=== PATIENT | female | born 1945 | race Caucasian/White ===

== ENCOUNTER 2017-05-17 09:33 | Inpatient (IN) | payer OTHER ==
[~2017-05-17] VITALS: Ht 160 cm; Wt 75.4 kg
[~2017-05-17 09:33] MED LIST: ASPI1TAB83 PO; CALC600T37 PO; CHOL20005 PO; CLON0.5T3 PO; LEVO88TA3 PO; METO1TAB31 PO; NIAC250T15 PO; OMEG500C2 PO; SOLI5TAB2 PO; SRQ/100 PO
[2017-05-17 10:29] LABS: BASO % 0.6 %; BASO ABS # 0.03 K/uL (0-0.2); COMPLETE YES; EOS % 2.4 %; HEMATOCRIT 37.9 % (37-47); IG% 0.2 %; LYMPH % 17.5 %; LYMPH ABS # 0.94 K/uL (1.2-3.4); MEAN CELL VOLUME 84.2 fL (80-100); MEAN CORPUSCULAR HEMOGLOBIN 29.3 pg (25-34); MEAN CORPUSCULAR HGB CONC 34.8 g/dl (32-36); MEAN PLATELET VOLUME 8.5 fL (7.4-10.4); MONO % 8.2 %; NEUT % 71.1 %; PLATELET COUNT 297 K/uL (130-400); WHITE BLOOD COUNT 5.37 K/uL (4.8-10.8)
--- NOTE | 2017-05-17 10:33 | EMERGENCY ROOM VISIT NOTE ---
History Report prepared by Leo: Tanika Kim Under the Supervision of: Dr. Matt Leavitt M.D. First contact with patient: 09:47 Chief Complaint: MENTAL HEALTH EVALUATION Stated Complaint: ANXIETY/DEPRESSION History of Present Illness The patient is a 71 year old female who presents to the Emergency Room for a mental health evaluation. Daughter at bedside states that the patient has had anxiety for the past 3 years, which worsened in February of this year. The patient had bilateral knee replacements in January. For 8 weeks after the surgery she was just sitting around and "staring at the wall." This caused her anxiety to worsen. Her psychiatrist has been increasing her Effexor but this seems to be causing her symptoms to worsen. In March the patient took a bottle of Seroquel and Klonopin in attempts to kill herself. She was treated as an inpatient at that time in [place]. Daughter states that her medications were not adjusted at that time so she had no improvement in her anxiety. The patient has lost 40 pounds since January because she is not eating. The patient does not have any physical complaints at this time. She denies fevers, chest pain, shortness of breath, urinary symptoms, and SI or HI. She has been taking her current medications as prescribed. She is currently taking trazodone to help her sleep. Daughter notes that the patient has been complaining of some blurry vision since her OD in March. She denies the patient having any access to medications including aspirin and Tylenol. The patient does take a daily baby aspirin. 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 Pt has been c/o blurry vision. Review of Systems See HPI for pertinent positives & negatives. A total of 10 systems reviewed and were otherwise negative. Past Medical & Surgical Medical Problems: (1) Anxiety (2) Depression (3) Panic disorder without agoraphobia Surgical Problems: (1) History of bilateral knee replacement Old medical records were reviewed. Nurse's notes were reviewed and I agree with. Family History Non-pertinent due to advanced age. Social History Smoking Status: Never Smoker Smokeless Tobacco Use: No Alcohol Use: none Drug Use: none Housing Status: lives with family Occupation Status: unemployed Current/Historical Medications Scheduled Aspirin (Aspirin), 81 MG PO DAILY Escitalopram Oxalate (Lexapro), 15 MG PO DAILY Famotidine (Pepcid), 20 MG PO QAM Levothyroxine Sodium (Synthroid), 125 MCG PO DAILY Metoprolol Succinate (Toprol Xl), 12.5 MG PO DAILY Propranolol (Inderal), 20 MG PO BID Simvastatin (Zocor), 20 MG PO QPM Trazodone Hcl (Desyrel), 150 MG PO HS Venlafaxine Hcl (Venlafaxine Extended Rel), 75 MG PO DAILY Allergies Coded Allergies: Penicillins (Verified Allergy, Intermediate, RASH, 05/17/17) Latex (Verified Allergy, Mild, REDNESS, 05/17/17) Physical Exam Vital Signs Date Time Temp Pulse Resp B/P (MAP) Pulse Ox O2 Delivery O2 Flow Rate FiO2 05/17/17 10:51 63 18 131/68 98 Room Air 05/17/17 09:34 36.7 63 18 183/80 98 Room Air Physical Exam Denies suicidal or homicidal ideations General: Well developed well nourished non-ill appearing older female in no acute distress, breathing comfortably on room air. Normal speech HEENT: Normal cephalic atraumatic. Pupils are equal round and reactive to light. Extraocular movements are intact. Oropharynx is pink with moist mucous membranes. No swelling of the mouth lips or tongue. Neck: Supple with a midline trachea. No meningeal signs or stiffness, no JVD or bruits. No Stridor. Chest: Clear to auscultation bilaterally. No wheezes or rhonchi. No increased work of breathing. Heart: regular rate and rhythm. Abdomen: Soft nontender, nondistended without rebound guarding or rigidity. Extremities: No cyanosis clubbing or edema. No calf tenderness or assymetry Spine/Back. Non tender to palpation. No CVA tenderness Skin: Good turgor without rashes. Neurologic exam: Cranial nerves two through 12 are intact. Motor and sensation are intact and symmetrical throughout. Psych: Somewhat flattened affect. Denies suicidal or homicidal ideations. Medical Decision & Procedures Laboratory Results 05/17/17 10:08 Red Blood Count 4.50, Mean Corpuscular Volume 84.2, Mean Corpuscular Hemoglobin 29.3, Mean Corpuscular Hemoglobin Concent 34.8, Mean Platelet Volume 8.5, Neutrophils (%) (Auto) 71.1, Lymphocytes (%) (Auto) 17.5, Monocytes (%) (Auto) 8.2, Eosinophils (%) (Auto) 2.4, Basophils (%) (Auto) 0.6, Neutrophils # (Auto) 3.82, Lymphocytes # (Auto) 0.94, Monocytes # (Auto) 0.44, Eosinophils # (Auto) 0.13, Basophils # (Auto) 0.03 05/17/17 10:08 Test 05/17/17 09:58 05/17/17 10:08 Urine Color YELLOW Urine Appearance CLEAR (CLEAR) Urine pH 5.0 (4.5-7.5) Urine Specific [place] 1.015 (1.000-1.030) Urine Protein NEG (NEG) Urine Glucose (UA) NEG (NEG) Urine Ketones NEG (NEG) Urine Occult Blood NEG (NEG) Urine Nitrite NEG (NEG) Urine Bilirubin NEG (NEG) Urine Urobilinogen NEG (NEG) Urine Leukocyte Esterase SMALL (NEG) Urine WBC (Auto) 1-5 /hpf (0-5) Urine RBC (Auto) 0-4 /hpf (0-4) Urine Hyaline Casts (Auto) 1-5 /lpf (0-5) Urine Epithelial Cells (Auto) 20-30 /lpf (0-5) Urine Bacteria (Auto) NEG (NEG) Urine Opiates Screen NEG (NEG) Urine Methadone, Qualitative NEG (NEG) Urine Barbiturates NEG (NEG) Urine Phencyclidine (PCP) Level NEG (NEG) Ur Amphetamine/Methamphetamine NEG (NEG) MDMA (Ecstasy) Screen POS (NEG) Urine Benzodiazepines Screen NEG (NEG) Urine Cocaine Metabolite NEG (NEG) Urine Marijuana (THC) NEG (NEG) White Blood Count 5.37 K/uL (4.8-10.8) Red Blood Count 4.50 M/uL (4.2-5.4) Hemoglobin 13.2 g/dL (12.0-16.0) Hematocrit 37.9 % (37-47) Mean Corpuscular Volume 84.2 fL (80-100) Mean Corpuscular Hemoglobin 29.3 pg (25-34) Mean Corpuscular Hemoglobin Concent 34.8 g/dl (32-36) Platelet Count 297 K/uL (130-400) Mean Platelet Volume 8.5 fL (7.4-10.4) Neutrophils (%) (Auto) 71.1 % Lymphocytes (%) (Auto) 17.5 % Monocytes (%) (Auto) 8.2 % Eosinophils (%) (Auto) 2.4 % Basophils (%) (Auto) 0.6 % Neutrophils # (Auto) 3.82 K/uL (1.4-6.5) Lymphocytes # (Auto) 0.94 K/uL (1.2-3.4) Monocytes # (Auto) 0.44 K/uL (0.11-0.59) Eosinophils # (Auto) 0.13 K/uL (0-0.5) Basophils # (Auto) 0.03 K/uL (0-0.2) RDW Standard Deviation 44.8 fL (36.4-46.3) RDW Coefficient of Variation 14.5 % (11.5-14.5) Immature Granulocyte % (Auto) 0.2 % Immature Granulocyte # (Auto) 0.01 K/uL (0.00-0.02) Anion Gap 10.0 mmol/L (3-11) Est Creatinine Clear Calc Drug Dose 58.3 ml/min Estimated GFR () 77.2 Estimated GFR (Non- 66.6 BUN/Creatinine Ratio 15.0 (10-20) Calcium Level 9.2 mg/dl (8.5-10.1) Total Bilirubin 0.5 mg/dl (0.2-1) Direct Bilirubin 0.2 mg/dl (0-0.2) Aspartate Amino Transf (AST/SGOT) 20 U/L (15-37) Alanine Aminotransferase (ALT/SGPT) 22 U/L (12-78) Alkaline Phosphatase 104 U/L (45-117) Total Protein 7.2 gm/dl (6.4-8.2) Albumin 3.6 gm/dl (3.4-5.0) Lipase 242 U/L (73-393) Thyroid Stimulating Hormone (TSH) 0.119 uIu/ml (0.300-4.500) Free Thyroxine 1.68 ng/dl (0.80-1.60) Ethyl Alcohol mg/dL < 3.0 mg/dl (0-3) Laboratory studies as stated above per my review. ED Course 0947: Past medical records reviewed. The patient was evaluated in room A8, and a complete history and physical examination were performed. 1121: Phuong the disease case manager is talking with the patient at present. 1300: [facility] has accepted the patient for further management. Medical Decision Differential diagnoses includes depression, anxiety, toxicologic, electrolyte or metabolic abnormality. This patient comes in as described above she's had increasing anxiety and depression. She feels she needs to be admitted as does her daughter. Blood testing was obtained. Her TSH is mildly low but I do not think that likely explains her symptoms. She has nothing to suggest infection or toxicologic process. She was evaluated by our case management team as well as 3 S. She will be voluntarily admitted for for inpatient psychiatric treatment and evaluation. Medication Reconcilliation Current Medication List: was personally reviewed by me Blood Pressure Screening Patient's blood pressure: Normal blood pressure Impression Primary Impression: Depression Additional Impression: Anxiety Scribe Attestation The scribe's documentation has been prepared under my direction and personally reviewed by me in its entirety. I confirm that the note above accurately reflects all work, treatment, procedures, and medical decision making performed by me. Departure Information Dispostion Mental Health Acute Care Referrals Karo Gorman M.D. (PCP) Forms HOME CARE DOCUMENTATION FORM, IMPORTANT VISIT INFORMATION Patient Instructions My [facility] Problem Qualifiers Primary Impression: Depression Depression Type: unspecified Qualified Codes: F32.9 - Major depressive disorder, single episode, unspecified
[2017-05-17 10:35] LABS: BENZODIAZEPINE, URINE NEG (NEG); COCAINE,URINE NEG (NEG); PHENCYCLIDINE, URINE NEG (NEG)
[2017-05-17 10:46] LABS: CALCIUM 9.2 mg/dl (8.5-10.1); CREATININE 0.88 mg/dl (0.60-1.20); POTASSIUM 4.1 mmol/L (3.5-5.1)
[2017-05-17] MEDS ORDERED: LEVO125T72 PO (10:51)
[2017-05-17] MEDS ORDERED: TRAZ1TAB52 PO (10:53)
[2017-05-17] MEDS ORDERED: EFF75 PO (10:53)
[2017-05-17] MEDS ORDERED: SIMV20TA2 PO (10:53)
[2017-05-17] MEDS ORDERED: FAMO20TA11 PO (10:53)
[2017-05-17] MEDS ORDERED: LXP/10 PO (10:53)
[2017-05-17] MEDS ORDERED: PROP10TA7 PO (10:53)
[2017-05-17 10:57] LABS: THYROID STIMULATING HORMONE 0.119 uIu/ml (0.300-4.500)
[2017-05-17 11:33] LABS: URINE APPEARANCE CLEAR (CLEAR); URINE BILIRUBIN NEG (NEG); URINE COLOR YELLOW; URINE EPITHELIAL CELL AUTO 20-30 /lpf (0-5); URINE NITRITE NEG (NEG); URINE SPECIFIC GRAVITY 1.015 (1.000-1.030); UROBILINOGEN NEG (NEG)
[2017-05-17 11:36] LABS: MANUAL MICROSCOPIC REQUIRED? NO; REVIEW REQ? NO
[2017-05-17] MEDS ORDERED: MAGNESIUM HYDROXIDE SUSP 30 ML UDC PO PRN (12:30)
[2017-05-17] MEDS ORDERED: ALUMINUM/MAGNESIUM SUSP 30 ML UDC PO PRN (12:30)
[2017-05-17] MEDS ORDERED: hydrOXYzine HCL 25 MG TAB PO PRN ×2 (12:30)
[2017-05-17] MEDS ORDERED: SODIUM CHLORIDE 0.65% NA SOLN 45 ML (OCEAN) PRN (12:30)
[2017-05-17] MEDS ORDERED: BISMUTH SUBSALICYLATE PER ML OMNICELL CHARGE PO PRN (12:30)
[2017-05-17] MEDS ORDERED: ACETAMINOPHEN 325 MG TAB PO PRN (12:30)
[2017-05-17] MEDS ORDERED: VENL75CA73 PO (12:54)
[2017-05-17 13:03] VITALS: O2SAT 98
[2017-05-17] MEDS ORDERED: ESCITALOPRAM OXALATE 10 MG TAB PO ONE (13:26)
[2017-05-17] MEDS ORDERED: ASPIRIN 81 MG ECTAB PO ONE (13:26)
[2017-05-17] MEDS ORDERED: PROPRANOLOL HCL 10 MG TAB PO ONE (13:27)
[2017-05-17] MEDS ORDERED: METOPROLOL SUCC 25MG EXT REL TAB PO ONE (13:27)
[2017-05-17] MEDS ORDERED: LEVOTHYROXINE 125 MCG TAB PO ONE (13:27)
[2017-05-17] MEDS ORDERED: VENLAFAXINE HCL XR 75 MG CAPXR PO ONE (13:28)
[2017-05-17 13:37] VITALS: BP 150/78; PULSE 62; TEMP 36.7; Ht 160 cm; Wt 75.4 kg
[2017-05-17 21:00] VITALS: BP 158/73; PULSE 73
[2017-05-17] MEDS: PROPRANOLOL HCL 10 MG TAB PO SCH (21:02)
[2017-05-17] MEDS: TRAZODONE HCL 50 MG TAB PO SCH (21:03)
[2017-05-17] MEDS: SIMVASTATIN 20 MG TAB PO SCH (21:03)
[2017-05-18 06:50] VITALS: BP_SYST 162; BP_SYST 166; BP_DIAS 80; PULSE 69; PULSE 76; TEMP 36.4
[2017-05-18] MEDS: LEVOTHYROXINE 125 MCG TAB PO SCH (08:09)
[2017-05-18] MEDS ORDERED: VENLAFAXINE HCL XR 75 MG CAPXR PO SCH (09:00)
[2017-05-18] MEDS ORDERED: ESCITALOPRAM OXALATE 10 MG TAB PO SCH (09:00)
[2017-05-18] MEDS: ASPIRIN 81 MG ECTAB PO SCH (09:04)
[2017-05-18] MEDS: PROPRANOLOL HCL 10 MG TAB PO SCH ×2 (09:05→21:04)
[2017-05-18] MEDS: METOPROLOL SUCC 25MG EXT REL TAB PO SCH (09:06)
[2017-05-18] MEDS: FAMOTIDINE 20 MG TAB PO SCH (09:06)
[2017-05-18] MEDS ORDERED: ESCITALOPRAM OXALATE 20 MG TAB PO ONE (10:57)
--- NOTE | 2017-05-18 11:23 | Psychiatric History & Physical ---
History Date of Service May 18, 2017. Identifying Data Flakita Redmond is a 71-year-old female, currently residing with her daughter in [facility], who presented to the emergency room with complaints of severe depression and suicidal ideation. She is admitted voluntarily. Information is gathered from the patient and considered to be reliable. Chief Complaint "I'm just really anxious". History of Present Illness The patient is a 71-year-old woman who is currently in psychiatric treatment with Paige VIGIL at [facility] in [place]. The patient had a recent hospitalization at [facility] in March of this year following an intentional overdose of Seroquel in a suicide attempt. The patient admits that her mood has been increasingly depressed although denies that there was any single precipitant to it. She had bilateral knee replacements in January and although that has been difficult and financially she was not able to complete inpatient rehabilitation, she denies that that was a significant stressor. Prior to the knee replacement she said that her mood was "stable" but does not say that she was happy. Her mood has been steadily worsening over the last several months. After overdosing on Seroquel in March she was admitted to [facility] for 2 weeks where she indicates they did not change her medications in any way. She did not feel better upon discharge and she decided with her outpatient provider that they would switch from Effexor to Lexapro as by her reports, she has never had a trial of an SSRI. She is currently on 75 mg of Effexor and Lexapro has been titrated to 15 mg daily. She does not feel any better and her anxiety is quite prominent. She is having trouble making decisions, cannot tolerate change. Apparently her outpatient provider has been suggesting she be hospitalized for medication changes for some time and yesterday referred her to the emergency room for evaluation. Today the patient continues to report depressed mood and severe anxiety. She reports poor appetite with a 40 pound weight loss over the last several months. She has "an awful lot of anxiety" that his been going on "for a good while". She does not have the motivation to pursue activities and says when she is at home she spends a lot of time "staring at the kaba". On weekends she will be a "recluse" and remain in her home and sometimes not even shower. 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 Today she denies that she is having acute suicidal ideation. She denies any episodes of elevated mood or increase in goal-directed activities that would meet criteria for bipolar disorder. She does not engage in self-injurious behaviors. She denies symptoms of OCD. She has never experienced auditory or visual hallucinations. Past Psychiatric History Current OP Treatment: psychiatrist (Paige VIGIL) Prior OP Treatment: psychiatrist Prior Psych Hospitalizations: [facility] (2012), other ([facility] March 2017) Access to a Gun: No Suicide Attempts: Yes (1 overdose attempt) Past Medication Trials Effexor-wore off Klonopin-overdosed on in March Seroquel-overdosed on in March Past Medical/Surgical History History of Concussion/Seizure: No (1) Hypothyroidism (2) Dyslipidemia (3) Hypertension (4) Urinary incontinence Allergies Allergies: Coded Allergies: Penicillins (Verified Allergy, Intermediate, RASH, 05/17/17) Latex (Verified Allergy, Mild, REDNESS, 05/17/17) Home Medications Scheduled Aspirin (Aspirin), 81 MG PO DAILY Escitalopram Oxalate (Lexapro), 15 MG PO DAILY Famotidine (Pepcid), 20 MG PO QAM Levothyroxine Sodium (Synthroid), 125 MCG PO DAILY Metoprolol Succinate (Toprol Xl), 12.5 MG PO DAILY Propranolol (Inderal), 20 MG PO BID Simvastatin (Zocor), 20 MG PO QPM Trazodone Hcl (Desyrel), 150 MG PO HS Venlafaxine Hcl (Venlafaxine Extended Rel), 75 MG PO DAILY Family History Diabetes mellitus FH: colon cancer FH: heart disease History of Suicide: No History of Substance Abuse: No Psychiatric History: No Alcohol Use Alcohol Use In Past 12 Months: No AUDIT Total Score: 0 Smoking Use Smoking Status: Never Smoker Substance History Does not drink nor use drugs Personal History Lives in: [place] in an apartment with her daughter Childhood: Is the oldest of 6 children. 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 [employer] Relationship History: Children: had 4 children, all daughters, 2 of whom are Spiritual Affiliation: Scientologist Legal History: none Psychological Trauma History: Denies Hx Traumatic Event Review of Systems Constitutional: malaise Eyes: reports: other (worsening distant vision) ENT: reports: other (difficulty swallowing both liquids and solids, been going on since March, denies aspiration) Cardiovascular: reports: chest tightness (with anxiety) Respiratory: denies: no symptoms reported, see HPI, cough, orthopnea, short of breath, stridor, wheezing, sputum production, cyanosis, ZAMAN, PND, other Gastrointestinal: denies no symptoms reported, denies see HPI, denies abdominal pain, denies constipation, denies diarrhea, denies nausea, denies vomiting, denies other Genitourinary - Female: denies: no symptoms, see HPI, rash, amenorrhea, dysmenorrhea, menorrhagia, metrorrhagia, , vaginal bleeding, vaginal itching, vaginal discharge, vulvadynia, other Musculoskeletal: denies no symptoms reported, denies see HPI, denies back pain , denies gout, denies joint pain, denies joint swelling, denies muscle pain, denies muscle stiffness, denies neck pain, denies other Integumentary: denies no symptoms reported, denies see HPI, denies change in color, denies change in hair/nails, denies dryness, denies lesions, denies lumps , denies rash, denies other Neurologic: reports: other (reports a tingling in her head occasionally) Hematologic / Lymphatic: denies: no symptoms, as stated in HPI, abnormal clotting, adenopathy, anemia, easy bleeding, easy bruising, gums bleeding, petechiae, other Examination Physical Examination Exam performed by Dr. Leavitt in the emergency department yesterday has been reviewed and accepted as medical clearance for our unit Vital Signs Vital Signs Past 12 Hours Date Time Temp Pulse Resp B/P (MAP) Pulse Ox O2 Delivery O2 Flow Rate FiO2 05/18/17 06:50 36.4 69 16 162/80 76 166/80 Laboratory Results 05/17/17 10:08 Red Blood Count 4.50, Mean Corpuscular Volume 84.2, Mean Corpuscular Hemoglobin 29.3, Mean Corpuscular Hemoglobin Concent 34.8, Mean Platelet Volume 8.5, Neutrophils (%) (Auto) 71.1, Lymphocytes (%) (Auto) 17.5, Monocytes (%) (Auto) 8.2, Eosinophils (%) (Auto) 2.4, Basophils (%) (Auto) 0.6, Neutrophils # (Auto) 3.82, Lymphocytes # (Auto) 0.94, Monocytes # (Auto) 0.44, Eosinophils # (Auto) 0.13, Basophils # (Auto) 0.03 05/17/17 10:08 Test 05/17/17 09:58 05/17/17 10:08 Urine Color YELLOW Urine Appearance CLEAR (CLEAR) Urine pH 5.0 (4.5-7.5) Urine Specific [place] 1.015 (1.000-1.030) Urine Protein NEG (NEG) Urine Glucose (UA) NEG (NEG) Urine Ketones NEG (NEG) Urine Occult Blood NEG (NEG) Urine Nitrite NEG (NEG) Urine Bilirubin NEG (NEG) Urine Urobilinogen NEG (NEG) Urine Leukocyte Esterase SMALL (NEG) Urine WBC (Auto) 1-5 /hpf (0-5) Urine RBC (Auto) 0-4 /hpf (0-4) Urine Hyaline Casts (Auto) 1-5 /lpf (0-5) Urine Epithelial Cells (Auto) 20-30 /lpf (0-5) Urine Bacteria (Auto) NEG (NEG) Urine Opiates Screen NEG (NEG) Urine Methadone, Qualitative NEG (NEG) Urine Barbiturates NEG (NEG) Urine Phencyclidine (PCP) Level NEG (NEG) Ur Amphetamine/Methamphetamine NEG (NEG) MDMA (Ecstasy) Screen POS (NEG) Urine Benzodiazepines Screen NEG (NEG) Urine Cocaine Metabolite NEG (NEG) Urine Marijuana (THC) NEG (NEG) White Blood Count 5.37 K/uL (4.8-10.8) Red Blood Count 4.50 M/uL (4.2-5.4) Hemoglobin 13.2 g/dL (12.0-16.0) Hematocrit 37.9 % (37-47) Mean Corpuscular Volume 84.2 fL (80-100) Mean Corpuscular Hemoglobin 29.3 pg (25-34) Mean Corpuscular Hemoglobin Concent 34.8 g/dl (32-36) Platelet Count 297 K/uL (130-400) Mean Platelet Volume 8.5 fL (7.4-10.4) Neutrophils (%) (Auto) 71.1 % Lymphocytes (%) (Auto) 17.5 % Monocytes (%) (Auto) 8.2 % Eosinophils (%) (Auto) 2.4 % Basophils (%) (Auto) 0.6 % Neutrophils # (Auto) 3.82 K/uL (1.4-6.5) Lymphocytes # (Auto) 0.94 K/uL (1.2-3.4) Monocytes # (Auto) 0.44 K/uL (0.11-0.59) Eosinophils # (Auto) 0.13 K/uL (0-0.5) Basophils # (Auto) 0.03 K/uL (0-0.2) RDW Standard Deviation 44.8 fL (36.4-46.3) RDW Coefficient of Variation 14.5 % (11.5-14.5) Immature Granulocyte % (Auto) 0.2 % Immature Granulocyte # (Auto) 0.01 K/uL (0.00-0.02) Anion Gap 10.0 mmol/L (3-11) Est Creatinine Clear Calc Drug Dose 58.3 ml/min Estimated GFR () 77.2 Estimated GFR (Non- 66.6 BUN/Creatinine Ratio 15.0 (10-20) Calcium Level 9.2 mg/dl (8.5-10.1) Total Bilirubin 0.5 mg/dl (0.2-1) Direct Bilirubin 0.2 mg/dl (0-0.2) Aspartate Amino Transf (AST/SGOT) 20 U/L (15-37) Alanine Aminotransferase (ALT/SGPT) 22 U/L (12-78) Alkaline Phosphatase 104 U/L (45-117) Total Protein 7.2 gm/dl (6.4-8.2) Albumin 3.6 gm/dl (3.4-5.0) Lipase 242 U/L (73-393) Thyroid Stimulating Hormone (TSH) 0.119 uIu/ml (0.300-4.500) Free Thyroxine 1.68 ng/dl (0.80-1.60) Ethyl Alcohol mg/dL < 3.0 mg/dl (0-3) Mental Examination During interview pt is: alert and oriented, cooperative Appearance: appropriately dressed, appropriately groomed Eye contact is: good Motor behavior is: steady gait & station, no abnormal motor movements Speech: normal in rate, rhythm & volume Affect: anxious Mood is: depressed, anxious Thought process: goal directed Thought content: reality based without delusions Suicidal thought are: denied Homicidal thoughts are: denied Hallucinations: denies auditory, denies visual Cognition: memory grossly intact, attention grossly intact, language grossly intact Intelligence estimated to be: average Insight: impaired Judgement: impaired Impression / Recommendations Impression Woman with severe depression. She was referred for admission by her outpatient provider for medication changes. She has not been thriving, isolating when she doesn't have to be at work with a positive vegetative profile. She is in the process of switching from Effexor to Lexapro and we will discontinue the remaining dose of Effexor and increase Lexapro to 20 mg daily. We have talked about a possible augmentation strategy with Tina which apparently her outpatient provider had suggested to. They have investigated the cost and it would be $45 a month which she seems to think would be too much to afford. Her anxiety makes it difficult for her to make decisions and she is ambivalent about being in the hospital although knows that she is not functioning at home. Her TSH was low and her free T4 was mildly elevated. She indicates that her levothyroxine dosage was increased during her stay in [place]. I will wait to see what the results were then but it may well be that we'll need to reduce it back to 112 g daily. We will have a family meeting with her daughter with whom she lives and coordinate with her current outpatient providers. At this time, the patient requires inpatient mental health treatment due to the fact that she has failed outpatient treatment and cannot function outside of a structured environment. Inventory Assets Strengths: Good support from family, good relationship with provider Risk Factors Assessment : Yes /single/: Yes Higher / Fall in social status: No Access to guns: No Health problems: Yes Mental Health Diagnoses: Yes Substance use disorders: No Previous attempt: Yes Previous psychiatric stay: Yes Smoker: No Protective Factors Assessment Lutheran beliefs: Yes : No Responsible for young children: No Employed: No Stable relationships: Yes Supportive family: Yes Good rapport with provider: Yes Recommendations (1) Major depressive disorder, recurrent severe without psychotic features 03/17 -Increase Lexapro to 20 mg daily - Discontinue Effexor - Will use when necessary Vistaril for anxiety and sleep - Assist the patient to explore coping strategies such as mindfulness, relaxation and deep breathing - Encourage participation in group and individual counseling - Every 15 minute checks for safety - Coordinate with her current outpatient providers and obtain records from hospitalization at [place] in March (2) Panic disorder without agoraphobia 03/17 - Medications as above - Assist the patient to explore other healthy coping strategies (3) Hypothyroidism 05/18 - TSH 0.119, free T4 1 0.68. May need levothyroxine adjusted back to 112 g daily but will await results from March values at [place] (4) Hypertension 05/18 - Continue home medications Monitor BP- (5) Dyslipidemia 05/18 - Continue home dose of Zocor Has been reviewed with Dr. Kiki Medina CPT Code Initial Hospital Care: [id number]
[2017-05-18] MEDS ORDERED: ESCITALOPRAM OXALATE 10 MG TAB PO ONE (11:30)
[2017-05-18] MEDS: TRAZODONE HCL 50 MG TAB PO SCH (21:04)
[2017-05-18] MEDS: SIMVASTATIN 20 MG TAB PO SCH (21:04)
[2017-05-18 21:40] VITALS: BP 138/74; PULSE 69
[2017-05-19 06:46] VITALS: BP_SYST 136; BP_SYST 147; BP_DIAS 76; BP_DIAS 77; PULSE 70; PULSE 71; TEMP 36.7
[2017-05-19] MEDS: LEVOTHYROXINE 125 MCG TAB PO SCH (07:59)
[2017-05-19] MEDS: ASPIRIN 81 MG ECTAB PO SCH (08:35)
[2017-05-19] MEDS: PROPRANOLOL HCL 10 MG TAB PO SCH ×2 (08:35→21:04)
[2017-05-19] MEDS: ESCITALOPRAM OXALATE 20 MG TAB PO SCH (08:35)
[2017-05-19] MEDS: METOPROLOL SUCC 25MG EXT REL TAB PO SCH (08:36)
[2017-05-19] MEDS: FAMOTIDINE 20 MG TAB PO SCH (08:36)
[2017-05-19 08:39] VITALS: BP 131/72; PULSE 70
--- NOTE | 2017-05-19 13:07 | Psychiatric Progress Notes ---
Progress Note Date of Service May 19, 2017. Interval History 80 yo Woman with severe depression. She was referred for admission by her outpatient provider for medication changes. She has not been thriving, isolating when she doesn't have to be at work with a positive vegetative profile. She is in the process of switching from Effexor to Lexapro and we will discontinue the remaining dose of Effexor and increase Lexapro to 20 mg daily. We have talked about a possible augmentation strategy with Emilygraciela which apparently her outpatient provider had suggested to. They have investigated the cost and it would be $45 a month which she seems to think would be too much to afford. Her anxiety makes it difficult for her to make decisions and she is ambivalent about being in the hospital although knows that she is not functioning at home. Her TSH was low and her free T4 was mildly elevated. She indicates that her levothyroxine dosage was increased during her stay in [place]. I will wait to see what the results were then but it may well be that we'll need to reduce it back to 112 g daily. We will have a family meeting with her daughter with whom she lives and coordinate with her current outpatient providers. At this time, the patient requires inpatient mental health treatment due to the fact that she has failed outpatient treatment and cannot function outside of a structured environment. Chief Complaint "Pretty good.". Subjective Patient was seen & assessed interval progress reviewed with Treatment Team. The patient says that she slept better last night, which is helping her mood today although awoke at 0300 and felt like she was "buckled to the bed" for a few seconds. She also felt mildly disoriented. She remains anxious and is worrying about a family meeting with her daughters this afternoon, but denies that there is anything she is specifically worried about. She is somewhat evasive when asked about SI, responding with "I'll be OK.", and "I won't ever do that again.", but with encouragement is able to say that she is still having suicidal thoughts. 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 Nursing reports that she has been attending groups, but continually reports that she feels anxious. Review of Systems Constitutional: No fever, No chills, No sweats, No weight loss, No weakness, No fatigue, No problem reported ENT: No hearing loss, No unusual epistaxis, No nasal symptoms, No sore throat, No tinnitus, No dental problems, No trouble swallowing, No problem reported Respiratory: No cough, No sputum, No wheezing, No shortness of breath, No dyspnea on exertion, No dyspnea at rest, No hemoptysis, No problem reported Cardiovascular: No chest pain, No orthopnea, No PND, No edema, No claudication , No palpitations, No problem reported Abdomen: No pain, No nausea, No vomiting, No diarrhea, No constipation, No GI bleeding, No problem reported Musculoskeletal: No joint pain, No muscle pain, No swelling, No calf pain, No problem reported Neurologic: No memory loss, No paralysis, No weakness, No numbness/tingling, No vertigo, No balance problems, No problem reported Psychiatric: + depression symptoms, + anxiety Sleep Information Total Hours of Sleep: 7.00 Meal Information Percent of Breakfast Consumed: 100 Percent of Lunch Consumed: 100 Percent of Dinner Consumed: 100 Mental Status Exam During interview pt is: alert and oriented, cooperative Appearance: appropriately dressed, appropriately groomed Eye contact is: good Motor behavior is: steady gait & station, no abnormal motor movements Speech: normal in rate, rhythm & volume Affect: anxious Mood is: depressed, anxious Thought process: goal directed Thought content: reality based without delusions Suicidal thought are: denied Homicidal thoughts are: denied Hallucinations: denies auditory, denies visual Cognition: memory grossly intact, attention grossly intact, language grossly intact Intelligence estimated to be: average Insight: impaired Judgement: impaired Impression Adjusting well to the structure and support of the milieu. Sleep improved last night, and denies any side effects or discontinuation symptoms from the transition from Effexor to Lexapro. We may want to consider uptitrating the Lexapro another step or considering augmenting with Abilify if no robust response. Plan (1) Major depressive disorder, recurrent severe without psychotic features 05/18 -Increase Lexapro to 20 mg daily - Discontinue Effexor - Will use when necessary Vistaril for anxiety and sleep - Assist the patient to explore coping strategies such as mindfulness, relaxation and deep breathing - Encourage participation in group and individual counseling - Every 15 minute checks for safety - Coordinate with her current outpatient providers and obtain records from hospitalization at [place] in March 30 - Continue Lexapro 20 mg. daily - Family meeting this afternoon (2) Panic disorder without agoraphobia 03/17 - Medications as above - Assist the patient to explore other healthy coping strategies (3) Hypothyroidism 05/18 - TSH 0.119, free T4 1 0.68. May need levothyroxine adjusted back to 112 g daily but will await results from March values at [place] (4) Hypertension 05/18 - Continue home medications Monitor BP- (5) Dyslipidemia 05/18 - Continue home dose of Zocor Has been reviewed with Dr. Kiki Medina Discharge / Aftercare Planning Primary Care Physician: Name: Dr Debbie Valdez Medical Psychiatrist: Name: Phyllis VIGIL Date of Appointment: May 31, 2017 Time of Appointment: 8:00am Therapist: Name: none Visit Code E&M Code: 10968 Inventory Assets Strengths: Good support from family, good relationship with provider Risk Factors Assessment : Yes /single/: Yes Higher / Fall in social status: No Health problems: Yes Mental Health Diagnoses: Yes Substance use disorders: No Previous attempt: Yes Previous psychiatric stay: Yes Smoker: No Protective Factors Assessment Yazidism beliefs: Yes : No Responsible for young children: No Employed: No Stable relationships: Yes Supportive family: Yes Good rapport with provider: Yes Data Vital Signs Last 24 Hrs: Date Time Temp Pulse Resp B/P (MAP) Pulse Ox O2 Delivery O2 Flow Rate FiO2 05/19/17 08:39 70 16 131/72 05/19/17 06:46 36.7 71 15 147/76 70 136/77 05/18/17 21:40 69 16 138/74 Meds Administered Last 24 Hrs: Meds Administered (Past 24Hrs) Medications (Trade) Dose Ordered Sig/Chaparro Route Start Time Stop Time Status Last Admin Dose Admin Aspirin (Ecotrin Tab) 81 mg DAILY PO 05/18/17 09:00 06/17/17 08:59 05/19/17 08:35 81 MG Escitalopram Oxalate (Lexapro Tab) 15 mg DAILY PO 05/18/17 09:00 05/18/17 10:59 DC 05/18/17 09:05 15 MG Famotidine (Pepcid Tab) 20 mg QAM PO 05/18/17 09:00 06/17/17 08:59 05/19/17 08:36 20 MG Levothyroxine Sodium (Synthroid Tab) 125 mcg DAILYBB PO 05/18/17 08:00 06/17/17 07:59 05/19/17 07:59 125 MCG Metoprolol Succinate (Toprol Xl Tab) 12.5 mg DAILY PO 05/18/17 09:00 06/17/17 08:59 05/19/17 08:36 12.5 MG Propranolol HCl (Inderal Tab) 20 mg BID PO 05/17/17 21:00 06/16/17 20:59 05/19/17 08:35 20 MG Simvastatin (Zocor Tab) 20 mg QPM PO 05/17/17 21:00 06/16/17 20:59 05/18/17 21:04 20 MG Trazodone HCl (Desyrel Tab) 150 mg HS PO 05/17/17 21:00 06/16/17 20:59 05/18/17 21:04 150 MG Venlafaxine HCl (effeXOR EXTENDED REL CAP) 75 mg DAILY PO 05/18/17 09:00 05/18/17 10:59 DC 05/18/17 09:05 75 MG Escitalopram Oxalate (Lexapro Tab) 20 mg QAM PO 05/19/17 09:00 06/18/17 08:59 05/19/17 08:35 20 MG Escitalopram Oxalate (Lexapro Tab) 5 mg 1130 ONCE PO 05/18/17 11:30 05/18/17 11:31 DC 05/18/17 12:14 5 MG Lab Results Last 24 Hrs: 05/17/17 10:08 Red Blood Count 4.50, Mean Corpuscular Volume 84.2, Mean Corpuscular Hemoglobin 29.3, Mean Corpuscular Hemoglobin Concent 34.8, Mean Platelet Volume 8.5, Neutrophils (%) (Auto) 71.1, Lymphocytes (%) (Auto) 17.5, Monocytes (%) (Auto) 8.2, Eosinophils (%) (Auto) 2.4, Basophils (%) (Auto) 0.6, Neutrophils # (Auto) 3.82, Lymphocytes # (Auto) 0.94, Monocytes # (Auto) 0.44, Eosinophils # (Auto) 0.13, Basophils # (Auto) 0.03 05/17/17 10:08 Test 05/17/17 09:58 05/17/17 10:08 Urine Color YELLOW Urine Appearance CLEAR (CLEAR) Urine pH 5.0 (4.5-7.5) Urine Specific [place] 1.015 (1.000-1.030) Urine Protein NEG (NEG) Urine Glucose (UA) NEG (NEG) Urine Ketones NEG (NEG) Urine Occult Blood NEG (NEG) Urine Nitrite NEG (NEG) Urine Bilirubin NEG (NEG) Urine Urobilinogen NEG (NEG) Urine Leukocyte Esterase SMALL (NEG) Urine WBC (Auto) 1-5 /hpf (0-5) Urine RBC (Auto) 0-4 /hpf (0-4) Urine Hyaline Casts (Auto) 1-5 /lpf (0-5) Urine Epithelial Cells (Auto) 20-30 /lpf (0-5) Urine Bacteria (Auto) NEG (NEG) Urine Opiates Screen NEG (NEG) Urine Methadone, Qualitative NEG (NEG) Urine Barbiturates NEG (NEG) Urine Phencyclidine (PCP) Level NEG (NEG) Ur Amphetamine/Methamphetamine NEG (NEG) MDMA (Ecstasy) Screen POS (NEG) Urine Benzodiazepines Screen NEG (NEG) Urine Cocaine Metabolite NEG (NEG) Urine Marijuana (THC) NEG (NEG) White Blood Count 5.37 K/uL (4.8-10.8) Red Blood Count 4.50 M/uL (4.2-5.4) Hemoglobin 13.2 g/dL (12.0-16.0) Hematocrit 37.9 % (37-47) Mean Corpuscular Volume 84.2 fL (80-100) Mean Corpuscular Hemoglobin 29.3 pg (25-34) Mean Corpuscular Hemoglobin Concent 34.8 g/dl (32-36) Platelet Count 297 K/uL (130-400) Mean Platelet Volume 8.5 fL (7.4-10.4) Neutrophils (%) (Auto) 71.1 % Lymphocytes (%) (Auto) 17.5 % Monocytes (%) (Auto) 8.2 % Eosinophils (%) (Auto) 2.4 % Basophils (%) (Auto) 0.6 % Neutrophils # (Auto) 3.82 K/uL (1.4-6.5) Lymphocytes # (Auto) 0.94 K/uL (1.2-3.4) Monocytes # (Auto) 0.44 K/uL (0.11-0.59) Eosinophils # (Auto) 0.13 K/uL (0-0.5) Basophils # (Auto) 0.03 K/uL (0-0.2) RDW Standard Deviation 44.8 fL (36.4-46.3) RDW Coefficient of Variation 14.5 % (11.5-14.5) Immature Granulocyte % (Auto) 0.2 % Immature Granulocyte # (Auto) 0.01 K/uL (0.00-0.02) Anion Gap 10.0 mmol/L (3-11) Est Creatinine Clear Calc Drug Dose 58.3 ml/min Estimated GFR () 77.2 Estimated GFR (Non- 66.6 BUN/Creatinine Ratio 15.0 (10-20) Calcium Level 9.2 mg/dl (8.5-10.1) Total Bilirubin 0.5 mg/dl (0.2-1) Direct Bilirubin 0.2 mg/dl (0-0.2) Aspartate Amino Transf (AST/SGOT) 20 U/L (15-37) Alanine Aminotransferase (ALT/SGPT) 22 U/L (12-78) Alkaline Phosphatase 104 U/L (45-117) Total Protein 7.2 gm/dl (6.4-8.2) Albumin 3.6 gm/dl (3.4-5.0) Lipase 242 U/L (73-393) Thyroid Stimulating Hormone (TSH) 0.119 uIu/ml (0.300-4.500) Free Thyroxine 1.68 ng/dl (0.80-1.60) Ethyl Alcohol mg/dL < 3.0 mg/dl (0-3)
[2017-05-19 20:56] VITALS: BP 179/82; PULSE 73
[2017-05-19] MEDS: TRAZODONE HCL 50 MG TAB PO SCH (21:04)
[2017-05-19] MEDS: SIMVASTATIN 20 MG TAB PO SCH (21:04)
[2017-05-20 07:00] VITALS: BP_SYST 153; BP_SYST 157; BP_DIAS 82; BP_DIAS 84; PULSE 60; PULSE 65; TEMP 36.9
[2017-05-20] MEDS: METOPROLOL SUCC 25MG EXT REL TAB PO SCH (08:37)
[2017-05-20] MEDS: FAMOTIDINE 20 MG TAB PO SCH (08:37)
[2017-05-20] MEDS: LEVOTHYROXINE 125 MCG TAB PO SCH (08:37)
[2017-05-20] MEDS: PROPRANOLOL HCL 10 MG TAB PO SCH ×2 (08:38→21:17)
[2017-05-20] MEDS: ASPIRIN 81 MG ECTAB PO SCH (08:38)
[2017-05-20] MEDS: ESCITALOPRAM OXALATE 20 MG TAB PO SCH (08:38)
--- NOTE | 2017-05-20 12:00 | Psychiatric Progress Notes ---
Progress Note Date of Service May 20, 2017. Interval History 80 yo Woman with severe depression. She was referred for admission by her outpatient provider for medication changes. She has not been thriving, isolating when she doesn't have to be at work with a positive vegetative profile. She was in the process of switching from Effexor to Lexapro and Effexor taper was finished here. Her anxiety makes it difficult for her to make decisions and she is ambivalent about being in the hospital although knows that she is not functioning at home. Chief Complaint "I don't know, I'm just not getting better". Subjective Patient was seen & assessed interval progress reviewed with Treatment Team. Daughters are supportive and offering to make alternate living arrangements and support leave from work for recovery. Her ongoing worries about her finances are apparently ruminative, family reassures she will be able to afford copays. Mrs. Redmond reports that she would prefer to isolate than attend group and that she doesn't have the focus to participate in therapeutic journaling. She expresses ongoing guilt about her suicidal ideations and declines to meet with pastoral care. Review of Systems Psych: denies symptoms other than stated above Constitutional: weight loss Cardiovascular: denied GI: denied Neurologic: tremor Remainder of 10 body systems also reviewed and denied other than noted above. Sleep Information Total Hours of Sleep: 7.50 Meal Information Percent of Breakfast Consumed: 100 Percent of Lunch Consumed: 50 Percent of Dinner Consumed: 75 Mental Status Exam During interview pt is: alert and oriented, cooperative Appearance: appropriately dressed, appropriately groomed Eye contact is: good Motor behavior is: steady gait & station, no abnormal motor movements Speech: normal in rate, rhythm & volume Affect: depressed, anxious Mood is: depressed, anxious Thought process: other (ruminative) Thought content: reality based without delusions Suicidal thought are: present, Plan: denied, Intent: denied Homicidal thoughts are: denied Hallucinations: denies auditory, denies visual Cognition: memory grossly intact, language grossly intact Intelligence estimated to be: average Insight: impaired Judgement: impaired Impression Continued inpatient hospitalization is medically necessary for ongoing monitoring and safety. Plan (1) Major depressive disorder, recurrent severe without psychotic features 05/18 -Increase Lexapro to 20 mg daily - Discontinue Effexor - Will use when necessary Vistaril for anxiety and sleep - Assist the patient to explore coping strategies such as mindfulness, relaxation and deep breathing - Encourage participation in group and individual counseling - Every 15 minute checks for safety - Coordinate with her current outpatient providers and obtain records from hospitalization at [facility] in March 30 - Continue Lexapro 20 mg. daily - Family meeting this afternoon 05/20 --risks/benefits/alternative treatments reviewed re: Abilify as augmentation strategy for patient's severe, persistent, ruminative depression. She ultimately agreed to a trial of 2.5 mg daily to start. Discussion included but was not limited to need for metabolic monitoring and risks of TD. Baseline AIMS=0. Fasting glucose and cholesterol panel in am. (2) Panic disorder without agoraphobia 03/17 - Medications as above - Assist the patient to explore other healthy coping strategies (3) Hypothyroidism 05/18 - TSH 0.119, free T4 1 0.68. May need levothyroxine adjusted back to 112 g daily but will await results from March values at [place] 05/20--TSH 8.65 02/04/17 and now suppressed. Family expressed concerns about weight loss and patient notes ongoing tremor despite beta bowen (for hypertension), decrease to 122 mcg synthroid, will require repeat thyroid panel in 6 weeks. (4) Hypertension 05/18 - Continue home medications Monitor BP- (5) Dyslipidemia 05/18 - Continue home dose of Zocor Has been reviewed with Dr. Kiki Medina Discharge / Aftercare Planning Primary Care Physician: Name: Dr Debbie Valdez Medical Psychiatrist: Name: Phyllis VIGIL Date of Appointment: May 31, 2017 Time of Appointment: 8:00am Therapist: Name: Cherie Harris Date of Appointment: May 27, 2017 Time of Appointment: 1:30pm Visit Code E&M Code: 13202 Inventory Assets Strengths: Good support from family, good relationship with provider Risk Factors Assessment : Yes /single/: Yes Higher / Fall in social status: No Health problems: Yes Mental Health Diagnoses: Yes Substance use disorders: No Previous attempt: Yes Previous psychiatric stay: Yes Smoker: No Protective Factors Assessment Synagogue beliefs: Yes : No Responsible for young children: No Employed: No Stable relationships: Yes Supportive family: Yes Good rapport with provider: Yes Data Vital Signs Last 24 Hrs: Date Time Temp Pulse Resp B/P (MAP) Pulse Ox O2 Delivery O2 Flow Rate FiO2 05/20/17 07:00 36.9 60 16 157/82 65 153/84 05/19/17 20:56 73 16 179/82 Meds Administered Last 24 Hrs: Meds Administered (Past 24Hrs) Medications (Trade) Dose Ordered Sig/Chaparro Route Start Time Stop Time Status Last Admin Dose Admin Escitalopram Oxalate (Lexapro Tab) 20 mg QAM PO 05/19/17 09:00 06/18/17 08:59 05/20/17 08:38 20 MG
[2017-05-20] MEDS: ARIPIprazole TAB 5 MG TAB PO SCH (12:32)
[2017-05-20 21:15] VITALS: PULSE 72
[2017-05-20] MEDS: TRAZODONE HCL 50 MG TAB PO SCH (21:16)
[2017-05-20] MEDS: SIMVASTATIN 20 MG TAB PO SCH (21:16)
[2017-05-21 06:51] VITALS: BP_SYST 133; BP_SYST 147; BP_DIAS 72; BP_DIAS 82; PULSE 66; PULSE 72; TEMP 36.5
[2017-05-21 08:04] LABS: CHOLESTEROL/HDL RATIO 3.2
[2017-05-21] MEDS: LEVOTHYROXINE 112 MCG TAB PO SCH (08:23)
[2017-05-21] MEDS: ASPIRIN 81 MG ECTAB PO SCH (08:35)
[2017-05-21] MEDS: PROPRANOLOL HCL 10 MG TAB PO SCH ×2 (08:35→21:05)
[2017-05-21] MEDS: ARIPIprazole TAB 5 MG TAB PO SCH (08:35)
[2017-05-21] MEDS: FAMOTIDINE 20 MG TAB PO SCH (08:35)
[2017-05-21] MEDS: ESCITALOPRAM OXALATE 20 MG TAB PO SCH (08:35)
[2017-05-21] MEDS: METOPROLOL SUCC 25MG EXT REL TAB PO SCH (08:36)
--- NOTE | 2017-05-21 09:49 | Psych Management Progress Note ---
Psychiatry Miscellaneous Date of Service: May 21, 2017. Patient seen, MS assessed. Rates mood as 7/10, more optimistic. Cooperative with care and treatment plan as outlined by BOBBIN MARKER. Encouraged participation in therapeutic activities.
--- NOTE | 2017-05-21 10:41 | Psychiatric Progress Notes ---
Progress Note Date of Service May 21, 2017. Interval History 80 yo Woman with severe depression. She was referred for admission by her outpatient provider for medication changes. She has not been thriving, isolating when she doesn't have to be at work with a positive vegetative profile. She was in the process of switching from Effexor to Lexapro and Effexor taper was finished here. Her anxiety makes it difficult for her to make decisions and she is ambivalent about being in the hospital although knows that she is not functioning at home. Chief Complaint "OK I guess". Subjective Patient was seen & assessed interval progress reviewed with Treatment Team. The patient starts by saying she is OK, but by the end of the discussion says " I guess I'm not as good as I think.". She is continuing to worry about how she will move forward since she still feels depressed. She does not necessarily want to move in with her daughter Tanika and her , fearing that she will be a financial burden to them. Ideally she would continue to live with her daughter Virginia with whom she currently lives as they each help to provide for the other. 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 She does not want to live by herself as she fears she will "just sit there". She is also worrying about her recent weight loss, feeling like she has lost muscle mass in her legs making her feel weak and unsteady. She fears that she will not be able to do a good job is she returns to her work, but in the same breath says that she doesn't want to let anyone down. She denies SI today. Review of Systems Constitutional: + fatigue ENT: No hearing loss, No unusual epistaxis, No nasal symptoms, No sore throat, No tinnitus, No dental problems, No trouble swallowing, No problem reported Respiratory: No cough, No sputum, No wheezing, No shortness of breath, No dyspnea on exertion, No dyspnea at rest, No hemoptysis, No problem reported Cardiovascular: No chest pain, No orthopnea, No PND, No edema, No claudication , No palpitations, No problem reported Abdomen: No pain, No nausea, No vomiting, No diarrhea, No constipation, No GI bleeding, No problem reported Musculoskeletal: + problem reported (knee and lower extremity weakness) Neurologic: No memory loss, No paralysis, No weakness, No numbness/tingling, No vertigo, No balance problems, No problem reported Psychiatric: + depression symptoms, + anxiety Integumentary: No rash, No itch, No new/changing skin lesions, No color change , No bleeding, No problem reported Sleep Information Total Hours of Sleep: 6.50 Meal Information Percent of Breakfast Consumed: 75 Percent of Lunch Consumed: 75 Percent of Dinner Consumed: 100 Mental Status Exam During interview pt is: alert and oriented, cooperative Appearance: appropriately dressed, appropriately groomed Eye contact is: good Motor behavior is: steady gait & station, no abnormal motor movements Speech: normal in rate, rhythm & volume Affect: depressed, anxious Mood is: depressed, anxious Thought process: other (ruminative) Thought content: reality based without delusions Suicidal thought are: denied, Plan: denied, Intent: denied Homicidal thoughts are: denied Hallucinations: denies auditory, denies visual Cognition: memory grossly intact, language grossly intact Intelligence estimated to be: average Insight: impaired Judgement: impaired Impression Abilify added yesterday, FLP WNL and reviewed with patient. She remains anxious , ruminative, unable to make decisions. Encouraged to write her housing option on paper, and a pro/con list for each in an effort to deal with facts and not her anxious suppositions. Will continue current meds but consider increasing Abilify to 5 in the next few days. Plan (1) Major depressive disorder, recurrent severe without psychotic features 05/18 -Increase Lexapro to 20 mg daily - Discontinue Effexor - Will use when necessary Vistaril for anxiety and sleep - Assist the patient to explore coping strategies such as mindfulness, relaxation and deep breathing - Encourage participation in group and individual counseling - Every 15 minute checks for safety - Coordinate with her current outpatient providers and obtain records from hospitalization at [facility] in March 30 - Continue Lexapro 20 mg. daily - Family meeting this afternoon 05/20 --risks/benefits/alternative treatments reviewed re: Abilify as augmentation strategy for patient's severe, persistent, ruminative depression. She ultimately agreed to a trial of 2.5 mg daily to start. Discussion included but was not limited to need for metabolic monitoring and risks of TD. Baseline AIMS=0. Fasting glucose and cholesterol panel in am. 9/30 - Continue current meds - Encourage to make pro/con list for possible housing options. (2) Panic disorder without agoraphobia 03/17 - Medications as above - Assist the patient to explore other healthy coping strategies (3) Hypothyroidism 05/18 - TSH 0.119, free T4 1 0.68. May need levothyroxine adjusted back to 112 g daily but will await results from March values at [place] 05/20--TSH 8.65 02/04/17 and now suppressed. Family expressed concerns about weight loss and patient notes ongoing tremor despite beta bowen (for hypertension), decrease to 122 mcg synthroid, will require repeat thyroid panel in 6 weeks. (4) Hypertension 05/18 - Continue home medications Monitor BP- (5) Dyslipidemia 05/18 - Continue home dose of Zocor Has been reviewed with Dr. Kiki Medina Discharge / Aftercare Planning Primary Care Physician: Name: Dr Debbie Valdez Medical Psychiatrist: Name: Phyllis VIGIL Date of Appointment: May 31, 2017 Time of Appointment: 8:00am Therapist: Name: Cherie Harris Date of Appointment: May 27, 2017 Time of Appointment: 1:30pm Visit Code E&M Code: 01955 Inventory Assets Strengths: Good support from family, good relationship with provider Risk Factors Assessment : Yes /single/: Yes Higher / Fall in social status: No Health problems: Yes Mental Health Diagnoses: Yes Substance use disorders: No Previous attempt: Yes Previous psychiatric stay: Yes Smoker: No Protective Factors Assessment Tenriism beliefs: Yes : No Responsible for young children: No Employed: No Stable relationships: Yes Supportive family: Yes Good rapport with provider: Yes Data Vital Signs Last 24 Hrs: Date Time Temp Pulse Resp B/P (MAP) Pulse Ox O2 Delivery O2 Flow Rate FiO2 05/21/17 06:51 36.5 66 16 133/72 72 147/82 05/20/17 21:15 72 Meds Administered Last 24 Hrs: Meds Administered (Past 24Hrs) Medications (Trade) Dose Ordered Sig/[place]arro Route Start Time Stop Time Status Last Admin Dose Admin Levothyroxine Sodium (Synthroid Tab) 112 mcg DAILYBB PO 05/21/17 08:00 06/20/17 07:59 05/21/17 08:23 112 MCG Aripiprazole (Abilify Tab) 2.5 mg QAM PO 05/20/17 12:00 06/19/17 11:59 05/21/17 08:35 2.5 MG Lab Results Last 24 Hrs: Last 24 Hours Test 05/21/17 07:05 Fasting Glucose 100 mg/dl Triglycerides Level 138 mg/dl Cholesterol Level 140 mg/dl HDL Cholesterol 44 mg/dl LDL Cholesterol, Calculated 68 mg/dl VLDL Cholesterol, Calculated 28 mg/dl Cholesterol/HDL Ratio 3.2
[2017-05-21] MEDS: TRAZODONE HCL 50 MG TAB PO SCH (21:04)
[2017-05-21] MEDS: SIMVASTATIN 20 MG TAB PO SCH (21:04)
[2017-05-22 06:50] VITALS: BP_SYST 135; BP_SYST 149; BP_DIAS 75; BP_DIAS 77; PULSE 73; PULSE 77; TEMP 36.9
[2017-05-22] MEDS: LEVOTHYROXINE 112 MCG TAB PO SCH (07:50)
--- NOTE | 2017-05-22 08:16 | Psychiatric Progress Notes ---
Progress Note Date of Service May 22, 2017. Interval History 80 yo Woman with severe depression. She was referred for admission by her outpatient provider for medication changes. She has not been thriving, isolating when she doesn't have to be at work with a positive vegetative profile. She was in the process of switching from Effexor to Lexapro and Effexor taper was finished here. Her anxiety makes it difficult for her to make decisions and she is ambivalent about being in the hospital although knows that she is not functioning at home. Chief Complaint "I'm OK". Subjective Patient was seen & assessed interval progress reviewed with Treatment Team. The patient has been thinking extensively about where she will live and today has decided that she will return to living with [place], and return to work, "Its the right thing to do". She acknowledges that it will be difficult, but she feels up to trying. She says these things with some trepidation as if there is room to change her mind. She has not told Tanika of her plans yet. She is worried about her sleep as it was poor again last night, feeling that she tossed and turned all night. We talked about increasing her trazodone, but she doesn't want to take more meds, fearing that she won't be alert in the AM. She describes her mood as "a little down" because so many peers are being discharged, but she denies SI. She denies side effects to meds other than mild sedation in the AM. Review of Systems Constitutional: + fatigue ENT: No hearing loss, No unusual epistaxis, No nasal symptoms, No sore throat, No tinnitus, No dental problems, No trouble swallowing, No problem reported Respiratory: No cough, No sputum, No wheezing, No shortness of breath, No dyspnea on exertion, No dyspnea at rest, No hemoptysis, No problem reported Cardiovascular: No chest pain, No orthopnea, No PND, No edema, No claudication , No palpitations, No problem reported Abdomen: No pain, No nausea, No vomiting, No diarrhea, No constipation, No GI bleeding, No problem reported Musculoskeletal: + problem reported (weal BLE s/p knee replacements) Neurologic: No memory loss, No paralysis, No weakness, No numbness/tingling, No vertigo, No balance problems, No problem reported Psychiatric: + depression symptoms, + anxiety, + insomnia Sleep Information Total Hours of Sleep: 8.00 Meal Information Percent of Breakfast Consumed: 75 Percent of Lunch Consumed: 100 Percent of Dinner Consumed: 100 Mental Status Exam During interview pt is: alert and oriented, cooperative Appearance: appropriately dressed, appropriately groomed Eye contact is: good Motor behavior is: steady gait & station, no abnormal motor movements Speech: normal in rate, rhythm & volume Affect: blunted, anxious Mood is: depressed, anxious Thought process: goal directed Thought content: reality based without delusions Suicidal thought are: denied, Plan: denied, Intent: denied Homicidal thoughts are: denied Hallucinations: denies auditory, denies visual Cognition: memory grossly intact, language grossly intact Intelligence estimated to be: average Insight: impaired Judgement: impaired Impression Has made a decision to return to live with daughter [place], although is still somewhat tentative. She remains anxious, and having insomnia, but refused the offer of more trazodone. Will increase Abilify to 5 mg. today. Plan (1) Major depressive disorder, recurrent severe without psychotic features 05/18 -Increase Lexapro to 20 mg daily - Discontinue Effexor - Will use when necessary Vistaril for anxiety and sleep - Assist the patient to explore coping strategies such as mindfulness, relaxation and deep breathing - Encourage participation in group and individual counseling - Every 15 minute checks for safety - Coordinate with her current outpatient providers and obtain records from hospitalization at [facility] in March 30 - Continue Lexapro 20 mg. daily - Family meeting this afternoon 05/20 --risks/benefits/alternative treatments reviewed re: Abilify as augmentation strategy for patient's severe, persistent, ruminative depression. She ultimately agreed to a trial of 2.5 mg daily to start. Discussion included but was not limited to need for metabolic monitoring and risks of TD. Baseline AIMS=0. Fasting glucose and cholesterol panel in am. 05/21 - Continue current meds - Encourage to make pro/con list for possible housing options. 05/22 - Increase Abilify to 5 mg. daily (2) Panic disorder without agoraphobia 03/17 - Medications as above - Assist the patient to explore other healthy coping strategies (3) Hypothyroidism 05/18 - TSH 0.119, free T4 1 0.68. May need levothyroxine adjusted back to 112 g daily but will await results from March values at [facility] 05/20--TSH 8.65 02/04/17 and now suppressed. Family expressed concerns about weight loss and patient notes ongoing tremor despite beta bowen (for hypertension), decrease to 122 mcg synthroid, will require repeat thyroid panel in 6 weeks. (4) Hypertension 05/18 - Continue home medications Monitor BP- (5) Dyslipidemia 05/18 - Continue home dose of Zocor Has been reviewed with Dr. Kiki Medina Discharge / Aftercare Planning Primary Care Physician: Name: Dr Debbie Valdez Medical Psychiatrist: Name: Phyllis VIGIL Date of Appointment: May 31, 2017 Time of Appointment: 8:00am Therapist: Name: Cherie Harris Date of Appointment: May 27, 2017 Time of Appointment: 1:30pm Visit Code E&M Code: 73499 Inventory Assets Strengths: Good support from family, good relationship with provider Risk Factors Assessment : Yes /single/: Yes Higher / Fall in social status: No Health problems: Yes Mental Health Diagnoses: Yes Substance use disorders: No Previous attempt: Yes Previous psychiatric stay: Yes Smoker: No Protective Factors Assessment Catholic beliefs: Yes : No Responsible for young children: No Employed: No Stable relationships: Yes Supportive family: Yes Good rapport with provider: Yes Data Vital Signs Last 24 Hrs: Date Time Temp Pulse Resp B/P (MAP) Pulse Ox O2 Delivery O2 Flow Rate FiO2 05/22/17 06:50 36.9 73 16 135/77 77 149/75 Meds Administered Last 24 Hrs: Meds Administered (Past 24Hrs) Medications (Trade) Dose Ordered Sig/Chaparro Route Start Time Stop Time Status Last Admin Dose Admin Levothyroxine Sodium (Synthroid Tab) 112 mcg DAILYBB PO 05/21/17 08:00 06/20/17 07:59 05/22/17 07:50 112 MCG Aripiprazole (Abilify Tab) 2.5 mg QAM PO 05/20/17 12:00 06/19/17 11:59 05/21/17 08:35 2.5 MG Lab Results Last 24 Hrs: 05/17/17 10:08 Red Blood Count 4.50, Mean Corpuscular Volume 84.2, Mean Corpuscular Hemoglobin 29.3, Mean Corpuscular Hemoglobin Concent 34.8, Mean Platelet Volume 8.5, Neutrophils (%) (Auto) 71.1, Lymphocytes (%) (Auto) 17.5, Monocytes (%) (Auto) 8.2, Eosinophils (%) (Auto) 2.4, Basophils (%) (Auto) 0.6, Neutrophils # (Auto) 3.82, Lymphocytes # (Auto) 0.94, Monocytes # (Auto) 0.44, Eosinophils # (Auto) 0.13, Basophils # (Auto) 0.03 05/17/17 10:08 Test 05/17/17 09:58 05/17/17 10:08 05/21/17 07:05 Urine Color YELLOW Urine Appearance CLEAR (CLEAR) Urine pH 5.0 (4.5-7.5) Urine Specific [place] 1.015 (1.000-1.030) Urine Protein NEG (NEG) Urine Glucose (UA) NEG (NEG) Urine Ketones NEG (NEG) Urine Occult Blood NEG (NEG) Urine Nitrite NEG (NEG) Urine Bilirubin NEG (NEG) Urine Urobilinogen NEG (NEG) Urine Leukocyte Esterase SMALL (NEG) Urine WBC (Auto) 1-5 /hpf (0-5) Urine RBC (Auto) 0-4 /hpf (0-4) Urine Hyaline Casts (Auto) 1-5 /lpf (0-5) Urine Epithelial Cells (Auto) 20-30 /lpf (0-5) Urine Bacteria (Auto) NEG (NEG) Urine Opiates Screen NEG (NEG) Urine Methadone, Qualitative NEG (NEG) Urine Barbiturates NEG (NEG) Urine Phencyclidine (PCP) Level NEG (NEG) Ur Amphetamine/Methamphetamine NEG (NEG) MDMA (Ecstasy) Screen POS (NEG) Urine Benzodiazepines Screen NEG (NEG) Urine Cocaine Metabolite NEG (NEG) Urine Marijuana (THC) NEG (NEG) White Blood Count 5.37 K/uL (4.8-10.8) Red Blood Count 4.50 M/uL (4.2-5.4) Hemoglobin 13.2 g/dL (12.0-16.0) Hematocrit 37.9 % (37-47) Mean Corpuscular Volume 84.2 fL (80-100) Mean Corpuscular Hemoglobin 29.3 pg (25-34) Mean Corpuscular Hemoglobin Concent 34.8 g/dl (32-36) Platelet Count 297 K/uL (130-400) Mean Platelet Volume 8.5 fL (7.4-10.4) Neutrophils (%) (Auto) 71.1 % Lymphocytes (%) (Auto) 17.5 % Monocytes (%) (Auto) 8.2 % Eosinophils (%) (Auto) 2.4 % Basophils (%) (Auto) 0.6 % Neutrophils # (Auto) 3.82 K/uL (1.4-6.5) Lymphocytes # (Auto) 0.94 K/uL (1.2-3.4) Monocytes # (Auto) 0.44 K/uL (0.11-0.59) Eosinophils # (Auto) 0.13 K/uL (0-0.5) Basophils # (Auto) 0.03 K/uL (0-0.2) RDW Standard Deviation 44.8 fL (36.4-46.3) RDW Coefficient of Variation 14.5 % (11.5-14.5) Immature Granulocyte % (Auto) 0.2 % Immature Granulocyte # (Auto) 0.01 K/uL (0.00-0.02) Anion Gap 10.0 mmol/L (3-11) Est Creatinine Clear Calc Drug Dose 58.3 ml/min Estimated GFR () 77.2 Estimated GFR (Non- 66.6 BUN/Creatinine Ratio 15.0 (10-20) Calcium Level 9.2 mg/dl (8.5-10.1) Total Bilirubin 0.5 mg/dl (0.2-1) Direct Bilirubin 0.2 mg/dl (0-0.2) Aspartate Amino Transf (AST/SGOT) 20 U/L (15-37) Alanine Aminotransferase (ALT/SGPT) 22 U/L (12-78) Alkaline Phosphatase 104 U/L (45-117) Total Protein 7.2 gm/dl (6.4-8.2) Albumin 3.6 gm/dl (3.4-5.0) Lipase 242 U/L (73-393) Thyroid Stimulating Hormone (TSH) 0.119 uIu/ml (0.300-4.500) Free Thyroxine 1.68 ng/dl (0.80-1.60) Ethyl Alcohol mg/dL < 3.0 mg/dl (0-3) Fasting Glucose 100 mg/dl (70-99) Triglycerides Level 138 mg/dl (0-150) Cholesterol Level 140 mg/dl (0-200) HDL Cholesterol 44 mg/dl LDL Cholesterol, Calculated 68 mg/dl VLDL Cholesterol, Calculated 28 mg/dl Cholesterol/HDL Ratio 3.2
[2017-05-22] MEDS: ARIPIprazole TAB 5 MG TAB PO SCH (08:44)
[2017-05-22] MEDS: PROPRANOLOL HCL 10 MG TAB PO SCH ×2 (08:45→21:04)
[2017-05-22] MEDS: METOPROLOL SUCC 25MG EXT REL TAB PO SCH (08:45)
[2017-05-22] MEDS: FAMOTIDINE 20 MG TAB PO SCH (08:45)
[2017-05-22] MEDS: ASPIRIN 81 MG ECTAB PO SCH (08:45)
[2017-05-22] MEDS: ESCITALOPRAM OXALATE 20 MG TAB PO SCH (08:45)
[2017-05-22 20:33] VITALS: BP 152/84; PULSE 80
[2017-05-22] MEDS: TRAZODONE HCL 50 MG TAB PO SCH (21:04)
[2017-05-22] MEDS: SIMVASTATIN 20 MG TAB PO SCH (21:04)
[2017-05-23 06:56] VITALS: BP_SYST 145; BP_SYST 148; BP_DIAS 79; BP_DIAS 80; PULSE 76; PULSE 80; TEMP 36.5
[2017-05-23] MEDS: LEVOTHYROXINE 112 MCG TAB PO SCH (07:54)
[2017-05-23] MEDS: ARIPIprazole TAB 5 MG TAB PO SCH (08:49)
[2017-05-23] MEDS: ASPIRIN 81 MG ECTAB PO SCH (08:49)
[2017-05-23] MEDS: FAMOTIDINE 20 MG TAB PO SCH (08:50)
[2017-05-23] MEDS: METOPROLOL SUCC 25MG EXT REL TAB PO SCH (08:50)
[2017-05-23] MEDS: PROPRANOLOL HCL 10 MG TAB PO SCH ×2 (08:50→21:37)
[2017-05-23] MEDS: ESCITALOPRAM OXALATE 20 MG TAB PO SCH (08:50)
[2017-05-23] MEDS ORDERED: TRAZODONE HCL 50 MG TAB PO PRN (09:15)
--- NOTE | 2017-05-23 09:26 | Psychiatric Progress Notes ---
Progress Note Date of Service May 23, 2017. Interval History 80 yo Woman with severe depression. She was referred for admission by her outpatient provider for medication changes. She has not been thriving, isolating when she doesn't have to be at work with a positive vegetative profile. She was in the process of switching from Effexor to Lexapro and Effexor taper was finished here. Her anxiety makes it difficult for her to make decisions and she is ambivalent about being in the hospital although knows that she is not functioning at home. Chief Complaint "I just want to get better". Subjective Patient was seen & assessed interval progress reviewed with Treatment Team. Staff report she changed her mind about her discharge plans over the weekend, saying she now wants to go back to work and return to live with her daughter [place]. Today, the patient states she was planning to go live with her daughter Renea, but yesterday she told the patient "she wants me to be all better before I come there." She now thinks that her daughter "doesn't want me. " She is not sure what her other options are, but had previously told staff that might return to live with another daughter, [place], but says this is not a good plan as they have financial concerns. She continues to report severe anxiety, worse when thinking about her situation and trying to make a decision about what to do when she leaves the hospital. Today, she says she really doesn' t want to go back to work. She says she doesn't feel she is getting any better, although she's been trying to "exercise and eat," saying she can't "move about, my legs are very weak." Her appetite is poor, but she is eating some of each meal. Sleep is good per nursing staff, but patient says she is not sleeping. She reports severe anxiety during the day, is unable to make decisions about what to do from moment to moment, and is unable to safety plan or state what coping skills she is trying. She denies SI, and denies side effects to medications. Sleep Information Total Hours of Sleep: 7.25 Meal Information Percent of Breakfast Consumed: 50 Percent of Lunch Consumed: 100 Percent of Dinner Consumed: 100 Mental Status Exam During interview pt is: alert and oriented, cooperative (but engagement limited by anxiety, nonverybal at times) Appearance: appropriately dressed, appropriately groomed Eye contact is: fair Motor behavior is: steady gait & station (slow), other (wringing hands) Speech: normal in rate, rhythm & volume (minimal speech, nonspontaneous, often does not answer questions at all, or have to repeat them several times) Affect: anxious, constricted Mood is: other ("not good") Thought process: goal directed (will sometimes answer direct, closed ended questions, but very short, limited responses) Thought content: cognitive distortions Suicidal thought are: denied, Plan: denied, Intent: denied Homicidal thoughts are: denied Hallucinations: denies auditory, denies visual Cognition: language grossly intact, other (attention impaired by anxiety) Intelligence estimated to be: average Insight: impaired Judgement: impaired Impression Remains unsure about discharge planning, struggling with severe anxiety and unable to process information or make decisions. She remains extremely anxious , with poor appetite, insomnia, and has declined an increase in her trazodone. Aripiprazole added for augmentation, and will continue to increase to effective dose. Plan (1) Major depressive disorder, recurrent severe without psychotic features 05/18 -Increase Lexapro to 20 mg daily - Discontinue Effexor - Will use when necessary Vistaril for anxiety and sleep - Assist the patient to explore coping strategies such as mindfulness, relaxation and deep breathing - Encourage participation in group and individual counseling - Every 15 minute checks for safety - Coordinate with her current outpatient providers and obtain records from hospitalization at [facility] in March 30 - Continue Lexapro 20 mg. daily - Family meeting this afternoon 05/20 --risks/benefits/alternative treatments reviewed re: Abilify as augmentation strategy for patient's severe, persistent, ruminative depression. She ultimately agreed to a trial of 2.5 mg daily to start. Discussion included but was not limited to need for metabolic monitoring and risks of TD. Baseline AIMS=0. Fasting glucose and cholesterol panel in am. 05/21 - Continue current meds - Encourage to make pro/con list for possible housing options. 05/22 - Increase Abilify to 5 mg. daily - Glucose 100, lipids WNLs. 05/23 - Continue escitalopram 20mg and aripiprazole 5mg daily. - Declined increase in trazodone dose, but will add 50mg prn to be given if 150mg ineffective. (2) Panic disorder without agoraphobia 03/17 - Medications as above - Assist the patient to explore other healthy coping strategies 05/23 - Encourage to work on coping skills and discharge plans, as says daughter Renea now doesn't want her to come stay with her. (3) Hypothyroidism 05/18 - TSH 0.119, free T4 1 0.68. May need levothyroxine adjusted back to 112 g daily but will await results from March values at [facility] 05/20 - TSH 8.65 on 02/04/17 and now suppressed. Family expressed concerns about weight loss and patient notes ongoing tremor despite beta bowen (for hypertension), decrease to 112 mcg synthroid, will require repeat thyroid panel in 6 weeks. (4) Hypertension 05/18 - Continue home medications Monitor BP- (5) Dyslipidemia 05/18 - Continue home dose of Zocor Discharge / Aftercare Planning Primary Care Physician: Name: Dr Debbie Valdez Medical Psychiatrist: Name: Phyllis VIGIL Date of Appointment: May 31, 2017 Time of Appointment: 8:00am Therapist: Name: Cherie Harris Date of Appointment: May 27, 2017 Time of Appointment: 1:30pm Visit Code E&M Code: 06090 Inventory Assets Strengths: Good support from family, good relationship with provider Risk Factors Assessment : Yes /single/: Yes Higher / Fall in social status: No Health problems: Yes Mental Health Diagnoses: Yes Substance use disorders: No Previous attempt: Yes Previous psychiatric stay: Yes Smoker: No Protective Factors Assessment Catholic beliefs: Yes : No Responsible for young children: No Employed: No Stable relationships: Yes Supportive family: Yes Good rapport with provider: Yes Data Vital Signs Last 24 Hrs: Date Time Temp Pulse Resp B/P (MAP) Pulse Ox O2 Delivery O2 Flow Rate FiO2 05/23/17 06:56 36.5 76 16 145/79 80 148/80 05/22/17 20:33 80 16 152/84 Meds Administered Last 24 Hrs: Meds Administered (Past 24Hrs) Medications (Trade) Dose Ordered Sig/Chaparro Route Start Time Stop Time Status Last Admin Dose Admin Aripiprazole (Abilify Tab) 5 mg QAM PO 05/22/17 09:00 06/21/17 08:59 05/23/17 08:49 5 MG
[2017-05-23 21:35] VITALS: BP 140/79; PULSE 89
[2017-05-23] MEDS: SIMVASTATIN 20 MG TAB PO SCH (21:36)
[2017-05-23] MEDS: TRAZODONE HCL 50 MG TAB PO SCH (21:36)
[2017-05-24 07:02] VITALS: BP_SYST 172; BP_SYST 178; BP_DIAS 102; BP_DIAS 81; PULSE 81; TEMP 36.5
[2017-05-24] MEDS: LEVOTHYROXINE 112 MCG TAB PO SCH (07:52)
[2017-05-24] MEDS: ASPIRIN 81 MG ECTAB PO SCH (08:20)
[2017-05-24] MEDS: ARIPIprazole TAB 5 MG TAB PO SCH (08:20)
[2017-05-24] MEDS: METOPROLOL SUCC 25MG EXT REL TAB PO SCH (08:21)
[2017-05-24] MEDS: FAMOTIDINE 20 MG TAB PO SCH (08:21)
[2017-05-24] MEDS: ESCITALOPRAM OXALATE 20 MG TAB PO SCH (08:21)
[2017-05-24] MEDS: PROPRANOLOL HCL 10 MG TAB PO SCH ×2 (08:21→21:06)
--- NOTE | 2017-05-24 13:26 | Psychiatric Progress Notes ---
Progress Note Date of Service May 24, 2017. Interval History 80 yo Woman with severe depression. She was referred for admission by her outpatient provider for medication changes. She has not been thriving, isolating when she doesn't have to be at work with a positive vegetative profile. She was in the process of switching from Effexor to Lexapro and Effexor taper was finished here. Her anxiety makes it difficult for her to make decisions and she is ambivalent about being in the hospital although knows that she is not functioning at home. Chief Complaint "Anxiety not as bad". Subjective Patient was seen & assessed interval progress reviewed with Nursing. Staff report she is going to groups, and trying to participate. Today she reports anxiety is a little bit better, and she is better able to think and answer questions. Mood is "not terrible, but not great," rates it a 5 out of 10. She remains unsure about what she wants to do at discharge, which daughter she will live with, but says she doesn't "feel confident" about going back to work. She isn't able to safety plan, and says "I don't know what the plan is." Anxiety is triggered in thinking about discharge and not feeling ready. She is worried about finances, saying she "doesn't know what will happen." She becomes increasingly distressed in talking about this, breathing heavily and unable to speak at times. She says she and her daughter [place] rent an apartment, but cannot afford it, and she doesn't know how long they'll be able to stay there. She also doesn't know where they will go if they have to leave. She has been paying the rent, but worries she won't be able to pay it if she is not working. She repeatedly says she "can't function at work," but is unable to explain what her concerns are. 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 She is not sure what her [facility] plan is with respect to housing, and doesn't answer when asked if this is something she'd like to work on while here. She is not able to contract for safety outside the hospital, "I just don' t know what I'd do if I was at home," but says she does want to go home. Sleep Information Total Hours of Sleep: 6.00 Meal Information Percent of Breakfast Consumed: 75 Percent of Lunch Consumed: 75 Percent of Dinner Consumed: 100 Mental Status Exam During interview pt is: alert and oriented, cooperative Appearance: appropriately dressed, appropriately groomed Eye contact is: fair Motor behavior is: steady gait & station (slow), no abnormal motor movements Speech: normal in rate, rhythm & volume (initally speech more spontaneous, but as becomes more anxious, is unable to talk at times) Affect: anxious, constricted Mood is: other ("anxiety a little better") Thought process: goal directed Thought content: cognitive distortions Suicidal thought are: denied Homicidal thoughts are: denied Hallucinations: denies auditory, denies visual Cognition: language grossly intact, other (attention impaired by anxiety) Intelligence estimated to be: average Insight: impaired Judgement: impaired Impression Remains unsure about discharge planning, struggling with severe anxiety and unable to process information or make decisions. She remains extremely anxious , with poor appetite, insomnia, and has declined an increase in her trazodone. Aripiprazole added for augmentation, and will continue to increase to effective dose. Plan (1) Major depressive disorder, recurrent severe without psychotic features 05/18 -Increase Lexapro to 20 mg daily - Discontinue Effexor - Will use when necessary Vistaril for anxiety and sleep - Assist the patient to explore coping strategies such as mindfulness, relaxation and deep breathing - Encourage participation in group and individual counseling - Every 15 minute checks for safety - Coordinate with her current outpatient providers and obtain records from hospitalization at [facility] in March 30 - Continue Lexapro 20 mg. daily - Family meeting this afternoon 05/20 --risks/benefits/alternative treatments reviewed re: Abilify as augmentation strategy for patient's severe, persistent, ruminative depression. She ultimately agreed to a trial of 2.5 mg daily to start. Discussion included but was not limited to need for metabolic monitoring and risks of TD. Baseline AIMS=0. Fasting glucose and cholesterol panel in am. 05/21 - Continue current meds - Encourage to make pro/con list for possible housing options. 05/22 - Increase Abilify to 5 mg. daily - Glucose 100, lipids WNLs. 05/23 - Continue escitalopram 20mg and aripiprazole 5mg daily. - Declined increase in trazodone dose, but will add 50mg prn to be given if 150mg ineffective. 05/24 - Continue escitalopram, trazodone, and aripiprazole. (2) Panic disorder without agoraphobia 03/17 - Medications as above - Assist the patient to explore other healthy coping strategies 05/23 - Encourage to work on coping skills and discharge plans, as says daughter Renea now doesn't want her to come stay with her. (3) Hypothyroidism 05/18 - TSH 0.119, free T4 1 0.68. May need levothyroxine adjusted back to 112 g daily but will await results from March values at [facility] 05/20 - TSH 8.65 on 02/04/17 and now suppressed. Family expressed concerns about weight loss and patient notes ongoing tremor despite beta obwen (for hypertension), decrease to 112 mcg synthroid, will require repeat thyroid panel in 6 weeks. (4) Hypertension 05/18 - Continue home medications Monitor BP- (5) Dyslipidemia 05/18 - Continue home dose of Zocor Discharge / Aftercare Planning Primary Care Physician: Name: Dr Debbie Valdez Medical Psychiatrist: Name: Phyllis VIGIL Date of Appointment: May 31, 2017 Time of Appointment: 8:00am Therapist: Name: Cherie Harris Date of Appointment: May 27, 2017 Time of Appointment: 1:30pm Visit Code E&M Code: 15827 Inventory Assets Strengths: Good support from family, good relationship with provider Risk Factors Assessment : Yes /single/: Yes Higher / Fall in social status: No Health problems: Yes Mental Health Diagnoses: Yes Substance use disorders: No Previous attempt: Yes Previous psychiatric stay: Yes Smoker: No Protective Factors Assessment Mormon beliefs: Yes : No Responsible for young children: No Employed: No Stable relationships: Yes Supportive family: Yes Good rapport with provider: Yes Data Vital Signs Last 24 Hrs: Date Time Temp Pulse Resp B/P (MAP) Pulse Ox O2 Delivery O2 Flow Rate FiO2 05/24/17 07:02 36.5 81 16 172/81 81 178/102 05/23/17 21:35 89 16 140/79
[2017-05-24] MEDS: SIMVASTATIN 20 MG TAB PO SCH (21:05)
[2017-05-24] MEDS: TRAZODONE HCL 50 MG TAB PO SCH (21:06)
[2017-05-24 21:09] VITALS: BP 142/87; PULSE 77
[2017-05-25 06:42] VITALS: BP_SYST 130; BP_SYST 138; BP_DIAS 76; BP_DIAS 78; PULSE 71; PULSE 79; TEMP 36.4
[2017-05-25] MEDS: LEVOTHYROXINE 112 MCG TAB PO SCH (07:57)
--- NOTE | 2017-05-25 08:06 | Psychiatric Progress Notes ---
Progress Note Date of Service May 25, 2017. Interval History 80 yo Woman with severe depression. She was referred for admission by her outpatient provider for medication changes. She has not been thriving, isolating when she doesn't have to be at work with a positive vegetative profile. She was in the process of switching from Effexor to Lexapro and Effexor taper was finished here. Her anxiety makes it difficult for her to make decisions and she is ambivalent about being in the hospital although knows that she is not functioning at home. Chief Complaint "I don't know, they're pushing me out". Subjective Patient was seen & assessed interval progress reviewed with Treatment Team. Staff report she decompensated after finding out that her insurance was not covering additional days, was so anxious she became unresponsive and could not respond to questions, had thought blocking, and nausea. She catastrophizes and misinterprets events, thinking that Renea didn't want her to come stay with her as planned, because she made a comment that she wanted Flaikta to be better before she was discharged from the hospital. Social work contacted her daughters to review concerns, and they support her going to [facility], which is available in [place], but she was too distraught and anxious to even sign a release or engage in a discussion of the recommended treatment. Her daughters were contacted, and there continues to be confusion about her plans at discharge , as she had initially agreed to go and stay with her daughter Tanika, but then misinterpreted and interaction with Tanika over the weekend and thoughts that Tanika no longer wanted her to come stay with her, so had been talking about returning to [place] to live with Leanna. She's been very anxious about this, as they are unable to afford the rent, and she thinks they will not be able to maintain their apartment in [place]. 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 She continues to have periods of such severe thought blocking that she cannot speak and is unable to process information, at one point last evening became disoriented, and could not figure out how to get back to her room. Today, she says she is "really antsy, really anxious, about leaving, going into a new program." She feels so overwhelmed that she is unable to make a decision about anything. She continues to go back and forth about where she should go at discharge. She is very distraught about her insurance not covering further stay in the hospital, feels she is being "pushed out," and says she doesn't know how she can manage outside the hospital. She is willing for a referral to the partial hospitalization program in [place], but is very anxious about that as well. She is struggling to get out of bed and go to groups and do ADLs, but is able to complete them with staff encouragement. Appetite is poor but she is trying to eat. Sleep Information Total Hours of Sleep: 7.00 Meal Information Percent of Breakfast Consumed: 75 Percent of Lunch Consumed: 75 Percent of Dinner Consumed: 100 Mental Status Exam During interview pt is: alert and oriented, cooperative Appearance: appropriately dressed, appropriately groomed Eye contact is: fair Motor behavior is: steady gait & station (slow), psychomotor retardation Speech: normal in rate, rhythm & volume (nonspontaneous, does not respond at times) Affect: depressed, anxious, constricted Mood is: anxious, other ("really antsy") Thought process: goal directed (but pauctiy of content) Thought content: preoccupation (with insurance forcing her out of the hospital) , cognitive distortions Suicidal thought are: denied Homicidal thoughts are: denied Hallucinations: denies auditory, denies visual Cognition: language grossly intact, other (attention impaired by anxiety) Intelligence estimated to be: average Insight: impaired Judgement: impaired Impression Remains unsure about discharge planning, struggling with severe anxiety and unable to process information or make decisions. She remains extremely anxious , with poor appetite, and requires staff encouragement to do ADLs. Aripiprazole added for augmentation, and will continue to increase to effective dose. Working on discharge plans, trying to determine where she will live, and exploring PHP in [place]. Plan (1) Major depressive disorder, recurrent severe without psychotic features 05/18 -Increase Lexapro to 20 mg daily - Discontinue Effexor - Will use when necessary Vistaril for anxiety and sleep - Assist the patient to explore coping strategies such as mindfulness, relaxation and deep breathing - Encourage participation in group and individual counseling - Every 15 minute checks for safety - Coordinate with her current outpatient providers and obtain records from hospitalization at [place] in March 30 - Continue Lexapro 20 mg. daily - Family meeting this afternoon 05/20 --risks/benefits/alternative treatments reviewed re: Abilify as augmentation strategy for patient's severe, persistent, ruminative depression. She ultimately agreed to a trial of 2.5 mg daily to start. Discussion included but was not limited to need for metabolic monitoring and risks of TD. Baseline AIMS=0. Fasting glucose and cholesterol panel in am. 05/21 - Continue current meds - Encourage to make pro/con list for possible housing options. 05/22 - Increase Abilify to 5 mg. daily - Glucose 100, lipids WNLs. 05/23 - Continue escitalopram 20mg and aripiprazole 5mg daily. - Declined increase in trazodone dose, but will add 50mg prn to be given if 150mg ineffective. 05/24 - Continue escitalopram, trazodone, and aripiprazole. 05/25 - Increase aripiprazole 7.5 mg every morning for tomorrow, and continue escitalopram and trazodone. - Refer to partial hospitalization program in [place], and continue to work with daughters regarding options for where she will live at discharge. - She is unable to return to work, so we will complete FMLA and short-term disability paperwork. (2) Panic disorder without agoraphobia 03/17 - Medications as above - Assist the patient to explore other healthy coping strategies 05/23 - Encourage to work on coping skills and discharge plans, as says daughter Renea now doesn't want her to come stay with her. (3) Hypothyroidism 05/18 - TSH 0.119, free T4 1 0.68. May need levothyroxine adjusted back to 112 g daily but will await results from March values at [place] 05/20 - TSH 8.65 on 02/04/17 and now suppressed. Family expressed concerns about weight loss and patient notes ongoing tremor despite beta bowen (for hypertension), decrease to 112 mcg synthroid, will require repeat thyroid panel in 6 weeks. (4) Hypertension 05/18 - Continue home medications Monitor BP- (5) Dyslipidemia 05/18 - Continue home dose of Zocor Discharge / Aftercare Planning Primary Care Physician: Name: Dr Debbie Valdez Medical Psychiatrist: Name: Phyllis VIGIL Date of Appointment: May 31, 2017 Time of Appointment: 8:00am Therapist: Name: Cherie Harris Date of Appointment: May 27, 2017 Time of Appointment: 1:30pm Visit Code E&M Code: 21360 Inventory Assets Strengths: Good support from family, good relationship with provider Risk Factors Assessment : Yes /single/: Yes Higher / Fall in social status: No Health problems: Yes Mental Health Diagnoses: Yes Substance use disorders: No Previous attempt: Yes Previous psychiatric stay: Yes Smoker: No Protective Factors Assessment Pentecostal beliefs: Yes : No Responsible for young children: No Employed: No Stable relationships: Yes Supportive family: Yes Good rapport with provider: Yes Data Vital Signs Last 24 Hrs: Date Time Temp Pulse Resp B/P (MAP) Pulse Ox O2 Delivery O2 Flow Rate FiO2 05/25/17 06:42 36.4 71 16 130/78 79 138/76 05/24/17 21:09 77 142/87
[2017-05-25] MEDS: ASPIRIN 81 MG ECTAB PO SCH (08:39)
[2017-05-25] MEDS: PROPRANOLOL HCL 10 MG TAB PO SCH ×2 (08:39→21:00)
[2017-05-25] MEDS: ARIPIprazole TAB 5 MG TAB PO SCH (08:39)
[2017-05-25] MEDS: ESCITALOPRAM OXALATE 20 MG TAB PO SCH (08:39)
[2017-05-25] MEDS: METOPROLOL SUCC 25MG EXT REL TAB PO SCH (08:40)
[2017-05-25] MEDS: FAMOTIDINE 20 MG TAB PO SCH (08:40)
[2017-05-25 20:59] VITALS: BP 143/76; PULSE 75
[2017-05-25] MEDS: TRAZODONE HCL 50 MG TAB PO SCH (21:01)
[2017-05-25] MEDS: SIMVASTATIN 20 MG TAB PO SCH (21:01)
[2017-05-26 06:46] VITALS: BP_SYST 109; BP_SYST 116; BP_DIAS 65; BP_DIAS 69; PULSE 61; PULSE 79; TEMP 36.5
[2017-05-26] MEDS: LEVOTHYROXINE 112 MCG TAB PO SCH (07:50)
[2017-05-26] MEDS: ARIPIprazole TAB 5 MG TAB PO SCH (08:31)
[2017-05-26] MEDS: ASPIRIN 81 MG ECTAB PO SCH (08:31)
[2017-05-26] MEDS: FAMOTIDINE 20 MG TAB PO SCH (08:32)
[2017-05-26] MEDS: METOPROLOL SUCC 25MG EXT REL TAB PO SCH (08:32)
[2017-05-26] MEDS: PROPRANOLOL HCL 10 MG TAB PO SCH ×2 (08:32→21:37)
[2017-05-26] MEDS: ESCITALOPRAM OXALATE 20 MG TAB PO SCH (08:32)
--- NOTE | 2017-05-26 11:06 | Psychiatric Progress Notes ---
Progress Note Date of Service May 26, 2017. Interval History 80 yo Woman with severe depression. She was referred for admission by her outpatient provider for medication changes. She has not been thriving, isolating when she doesn't have to be at work with a positive vegetative profile. She was in the process of switching from Effexor to Lexapro and Effexor taper was finished here. Her anxiety makes it difficult for her to make decisions and she is ambivalent about being in the hospital although knows that she is not functioning at home. Chief Complaint "My mood is better.". Subjective Patient was seen & assessed interval progress reviewed with Treatment Team. Cassie Jacques PA-C is present with the patient's permission. The patient is more verbally fluent today. She is able to answer questions without significant latency to her responses. She remains anxious about "what it will be like", meaning the partial program that she is being referred to. She wonders if she will have to take her own meals, and how many hours per day it is. Her sleep continues to be difficult, laying awake until 0300. She is also complaining that her legs feel weak and at times feels like she can't get up. She denies SI. She restates that she plans to return to live with her daughter Leanna, and will likely return to her work feeling that she can't survive without that income. We discuss medication adjustments, but she doesnt' like taking meds and resists any increase,. Staff report that she has been more hopeful and showing more affect. Review of Systems Constitutional: No fever, No chills, No sweats, No weight loss, No weakness, No fatigue, No problem reported ENT: No hearing loss, No unusual epistaxis, No nasal symptoms, No sore throat, No tinnitus, No dental problems, No trouble swallowing, No problem reported Respiratory: No cough, No sputum, No wheezing, No shortness of breath, No dyspnea on exertion, No dyspnea at rest, No hemoptysis, No problem reported Cardiovascular: No chest pain, No orthopnea, No PND, No edema, No claudication , No palpitations, No problem reported Abdomen: No pain, No nausea, No vomiting, No diarrhea, No constipation, No GI bleeding, No problem reported Musculoskeletal: + problem reported (lower extremity weakness) Neurologic: No memory loss, No paralysis, No weakness, No numbness/tingling, No vertigo, No balance problems, No problem reported Psychiatric: + depression symptoms, + anxiety, + insomnia Integumentary: No rash, No itch, No new/changing skin lesions, No color change , No bleeding, No problem reported Sleep Information Total Hours of Sleep: 6.50 Meal Information Percent of Breakfast Consumed: 100 Percent of Lunch Consumed: 100 Percent of Dinner Consumed: 100 Mental Status Exam During interview pt is: alert and oriented, cooperative Appearance: appropriately dressed, appropriately groomed Eye contact is: fair Motor behavior is: steady gait & station (slow), psychomotor retardation, other (BLE weakness) Speech: normal in rate, rhythm & volume (nonspontaneous, does not respond at times) Affect: depressed, anxious, constricted Mood is: anxious, other ("better") Thought process: goal directed (but pauctiy of content) Thought content: cognitive distortions, reality based without delusions Suicidal thought are: denied Homicidal thoughts are: denied Hallucinations: denies auditory, denies visual Cognition: language grossly intact, other (attention impaired by anxiety) Intelligence estimated to be: average Insight: poor Judgement: poor Impression Improvement to her spontaneity over the last 2 days. She has agreed to partial although anxious in the same breath. She has made her decision about where she will live. Her sleep remains difficult, with initial insomnia, and so will increase Trazodone to 200 mg. HS. She feels like she is ready to go home and so will see if sleep improves and may be able to consider discharge in the next day or two.l Plan (1) Major depressive disorder, recurrent severe without psychotic features 05/18 -Increase Lexapro to 20 mg daily - Discontinue Effexor - Will use when necessary Vistaril for anxiety and sleep - Assist the patient to explore coping strategies such as mindfulness, relaxation and deep breathing - Encourage participation in group and individual counseling - Every 15 minute checks for safety - Coordinate with her current outpatient providers and obtain records from hospitalization at [place] in March 30 - Continue Lexapro 20 mg. daily - Family meeting this afternoon 05/20 --risks/benefits/alternative treatments reviewed re: Abilify as augmentation strategy for patient's severe, persistent, ruminative depression. She ultimately agreed to a trial of 2.5 mg daily to start. Discussion included but was not limited to need for metabolic monitoring and risks of TD. Baseline AIMS=0. Fasting glucose and cholesterol panel in am. 05/21 - Continue current meds - Encourage to make pro/con list for possible housing options. 05/22 - Increase Abilify to 5 mg. daily - Glucose 100, lipids WNLs. 05/23 - Continue escitalopram 20mg and aripiprazole 5mg daily. - Declined increase in trazodone dose, but will add 50mg prn to be given if 150mg ineffective. 05/24 - Continue escitalopram, trazodone, and aripiprazole. 05/25 - Increase aripiprazole 7.5 mg every morning for tomorrow, and continue escitalopram and trazodone. - Refer to partial hospitalization program in [place], and continue to work with daughters regarding options for where she will live at discharge. - She is unable to return to work, so we will complete FMLA and short-term disability paperwork. 05/26 - Increase Trazodone to 200 mg. HS (2) Panic disorder without agoraphobia 03/17 - Medications as above - Assist the patient to explore other healthy coping strategies 05/23 - Encourage to work on coping skills and discharge plans, as says daughter Renea now doesn't want her to come stay with her. (3) Hypothyroidism 05/18 - TSH 0.119, free T4 1 0.68. May need levothyroxine adjusted back to 112 g daily but will await results from March values at [place] 05/20 - TSH 8.65 on 02/04/17 and now suppressed. Family expressed concerns about weight loss and patient notes ongoing tremor despite beta bowen (for hypertension), decrease to 112 mcg synthroid, will require repeat thyroid panel in 6 weeks. (4) Hypertension 05/18 - Continue home medications Monitor BP- (5) Dyslipidemia 05/18 - Continue home dose of Zocor Discharge / Aftercare Planning Primary Care Physician: Name: Dr Debbie Valdez Medical Psychiatrist: Name: Phyllis VIGIL Date of Appointment: May 31, 2017 Time of Appointment: 8:00am Therapist: Name: Cherie Harris Date of Appointment: May 27, 2017 Time of Appointment: 1:30pm Visit Code E&M Code: 98612 Inventory Assets Strengths: Good support from family, good relationship with provider Risk Factors Assessment : Yes /single/: Yes Higher / Fall in social status: No Health problems: Yes Mental Health Diagnoses: Yes Substance use disorders: No Previous attempt: Yes Previous psychiatric stay: Yes Smoker: No Protective Factors Assessment Mormonism beliefs: Yes : No Responsible for young children: No Employed: No Stable relationships: Yes Supportive family: Yes Good rapport with provider: Yes Data Vital Signs Last 24 Hrs: Date Time Temp Pulse Resp B/P (MAP) Pulse Ox O2 Delivery O2 Flow Rate FiO2 05/26/17 06:46 36.5 61 16 109/65 79 116/69 05/25/17 20:59 75 16 143/76 Meds Administered Last 24 Hrs: Meds Administered (Past 24Hrs) Medications (Trade) Dose Ordered Sig/[place] Route Start Time Stop Time Status Last Admin Dose Admin Aripiprazole (Abilify Tab) 7.5 mg QAM PO 05/26/17 09:00 06/21/17 08:59 05/26/17 08:31 7.5 MG Lab Results Last 24 Hrs: 05/17/17 10:08 Red Blood Count 4.50, Mean Corpuscular Volume 84.2, Mean Corpuscular Hemoglobin 29.3, Mean Corpuscular Hemoglobin Concent 34.8, Mean Platelet Volume 8.5, Neutrophils (%) (Auto) 71.1, Lymphocytes (%) (Auto) 17.5, Monocytes (%) (Auto) 8.2, Eosinophils (%) (Auto) 2.4, Basophils (%) (Auto) 0.6, Neutrophils # (Auto) 3.82, Lymphocytes # (Auto) 0.94, Monocytes # (Auto) 0.44, Eosinophils # (Auto) 0.13, Basophils # (Auto) 0.03 05/17/17 10:08 Test 05/17/17 09:58 05/17/17 10:08 05/21/17 07:05 Urine Color YELLOW Urine Appearance CLEAR (CLEAR) Urine pH 5.0 (4.5-7.5) Urine Specific [place] 1.015 (1.000-1.030) Urine Protein NEG (NEG) Urine Glucose (UA) NEG (NEG) Urine Ketones NEG (NEG) Urine Occult Blood NEG (NEG) Urine Nitrite NEG (NEG) Urine Bilirubin NEG (NEG) Urine Urobilinogen NEG (NEG) Urine Leukocyte Esterase SMALL (NEG) Urine WBC (Auto) 1-5 /hpf (0-5) Urine RBC (Auto) 0-4 /hpf (0-4) Urine Hyaline Casts (Auto) 1-5 /lpf (0-5) Urine Epithelial Cells (Auto) 20-30 /lpf (0-5) Urine Bacteria (Auto) NEG (NEG) Urine Opiates Screen NEG (NEG) Urine Methadone, Qualitative NEG (NEG) Urine Barbiturates NEG (NEG) Urine Phencyclidine (PCP) Level NEG (NEG) Ur Amphetamine/Methamphetamine NEG (NEG) Urine MDE-amphetamine (MDEA) negative Ur Methylenedioxyamphetamine (MDA) negative MDMA (Ecstasy) Screen POS (NEG) Methylenedioxymethamphetamine (MDMA negative Urine Benzodiazepines Screen NEG (NEG) Urine Cocaine Metabolite NEG (NEG) Urine Marijuana (THC) NEG (NEG) White Blood Count 5.37 K/uL (4.8-10.8) Red Blood Count 4.50 M/uL (4.2-5.4) Hemoglobin 13.2 g/dL (12.0-16.0) Hematocrit 37.9 % (37-47) Mean Corpuscular Volume 84.2 fL (80-100) Mean Corpuscular Hemoglobin 29.3 pg (25-34) Mean Corpuscular Hemoglobin Concent 34.8 g/dl (32-36) Platelet Count 297 K/uL (130-400) Mean Platelet Volume 8.5 fL (7.4-10.4) Neutrophils (%) (Auto) 71.1 % Lymphocytes (%) (Auto) 17.5 % Monocytes (%) (Auto) 8.2 % Eosinophils (%) (Auto) 2.4 % Basophils (%) (Auto) 0.6 % Neutrophils # (Auto) 3.82 K/uL (1.4-6.5) Lymphocytes # (Auto) 0.94 K/uL (1.2-3.4) Monocytes # (Auto) 0.44 K/uL (0.11-0.59) Eosinophils # (Auto) 0.13 K/uL (0-0.5) Basophils # (Auto) 0.03 K/uL (0-0.2) RDW Standard Deviation 44.8 fL (36.4-46.3) RDW Coefficient of Variation 14.5 % (11.5-14.5) Immature Granulocyte % (Auto) 0.2 % Immature Granulocyte # (Auto) 0.01 K/uL (0.00-0.02) Anion Gap 10.0 mmol/L (3-11) Est Creatinine Clear Calc Drug Dose 58.3 ml/min Estimated GFR () 77.2 Estimated GFR (Non- 66.6 BUN/Creatinine Ratio 15.0 (10-20) Calcium Level 9.2 mg/dl (8.5-10.1) Total Bilirubin 0.5 mg/dl (0.2-1) Direct Bilirubin 0.2 mg/dl (0-0.2) Aspartate Amino Transf (AST/SGOT) 20 U/L (15-37) Alanine Aminotransferase (ALT/SGPT) 22 U/L (12-78) Alkaline Phosphatase 104 U/L (45-117) Total Protein 7.2 gm/dl (6.4-8.2) Albumin 3.6 gm/dl (3.4-5.0) Lipase 242 U/L (73-393) Thyroid Stimulating Hormone (TSH) 0.119 uIu/ml (0.300-4.500) Free Thyroxine 1.68 ng/dl (0.80-1.60) Ethyl Alcohol mg/dL < 3.0 mg/dl (0-3) Fasting Glucose 100 mg/dl (70-99) Triglycerides Level 138 mg/dl (0-150) Cholesterol Level 140 mg/dl (0-200) HDL Cholesterol 44 mg/dl LDL Cholesterol, Calculated 68 mg/dl VLDL Cholesterol, Calculated 28 mg/dl Cholesterol/HDL Ratio 3.2
[2017-05-26] MEDS: SIMVASTATIN 20 MG TAB PO SCH (21:35)
[2017-05-26 21:38] VITALS: BP 145/77; PULSE 78
[2017-05-26] MEDS ORDERED: TRAZODONE HCL 100 MG TAB PO SCH (22:00)
[2017-05-27 06:41] VITALS: BP_SYST 133; BP_SYST 137; BP_DIAS 76; BP_DIAS 78; PULSE 66; PULSE 72; TEMP 36.3
[2017-05-27] MEDS: LEVOTHYROXINE 112 MCG TAB PO SCH (09:50)
[2017-05-27] MEDS: FAMOTIDINE 20 MG TAB PO SCH (09:50)
[2017-05-27] MEDS ORDERED: LXP/20 PO (09:51)
[2017-05-27] MEDS ORDERED: TRAZ1TAB8 PO (09:51)
[2017-05-27] MEDS: ASPIRIN 81 MG ECTAB PO SCH (09:51)
[2017-05-27] MEDS ORDERED: LEVO112T2 PO (09:51)
[2017-05-27] MEDS ORDERED: ABL5 PO (09:51)
[2017-05-27] MEDS: METOPROLOL SUCC 25MG EXT REL TAB PO SCH (09:51)
[2017-05-27] MEDS: ESCITALOPRAM OXALATE 20 MG TAB PO SCH (09:51)
[2017-05-27] MEDS: ARIPIprazole TAB 5 MG TAB PO SCH (09:51)
[2017-05-27] MEDS: PROPRANOLOL HCL 10 MG TAB PO SCH (09:51)
--- NOTE | 2017-05-27 09:59 | Discharge Instructions ---
Discharge Information Report Includes Report will include the: Discharge Instructions & Summary Admission Admission Date / Time: May 17, 2017 at 12:19 Reason for Admission: Depression Discharge Discharge Diagnosis / Problem: depression and anxiety Condition at Discharge: Fair Discharge Goals Goal(s): Decrease discomfort, Improve function, Prevent Disease Progression Activity Recommendations Activity Limitations: resume your previous activity . Instructions / Follow-Up Instructions / Follow-Up . SPECIAL CARE INSTRUCTIONS: 1. Follow through with your scheduled aftercare appointments. If unable to keep an appointment, please call to reschedule. 2. Take your medication only as prescribed. Medication should not be changed or stopped without the approval of your doctor. In the event of worsening symptoms or concerns about side effects, contact your doctor immediately. 3. Utilize new healthy coping skills, anger management skills, and stress management skills learned during your hospitalization. Journal feelings and process them with a support person. Identify stressors or situations that may result in relapse, deterioration or inappropriate behaviors and develop a plan to deal with those issues. 4. If your coping skills are ineffective and you are in crisis, contact your outpatient providers for direction. If unable to reach your providers, please call the CAN HELP LINE AT or go to the closest Emergency Room. 5. Avoid alcohol and un-prescribed drugs. 6. You have been provided with the Mental Health Advance Directives Pamphlet for your review. AFTERCARE APPOINTMENTS: * Please call your insurance company prior to your scheduled appointment to confirm your aftercare providers are covered. Take your insurance information to your appointments. . Discharge / Aftercare Planning Primary Care Physician: Name: Dr Debbie Valdez [facility] Psychiatrist: Name: Phyllis VIGIL Date of Appointment: May 31, 2017 Time of Appointment: 8:00am Therapist: Name Of Therapist: Cherie Harris Date of Appointment: May 27, 2017 Time of Appointment: 1:30pm . Follow-Up Care Plan for Follow-Up Care: The patient has an appt with her psychiatric provider next week, and has been referred to partial hospitalization Current Hospital Diet Patient's current hospital diet: Regular Diet Discharge Diet Recommended Diet: Regular Diet Procedures Procedures Performed: No Pending Studies Pending Studies at Discharge: No Medical Emergencies . Who to Call and When: Medical Emergencies: For questions or emergencies related to your hospital stay, please contact the Inpatient Behavioral Health Unit at [phone]. A oil and gas drafter is on-call 14/03 for the Behavioral Health Unit for emergencies At any time you feel your situation is an emergency, you may also call 911 immediately. . Non-Emergent Contact Non-Emergency issues call your: Psychiatrist, Therapist Advance Directives Existing Advance Directive: No Do You Have an Existing Mental: No Existing Living Will: No Existing Power of It Data Architect: No Advance Directives Info Given: To Pt/S.O. Advance Directives Reason: Declines as Mental Health Visit. Discharge Summary Admission HPI Per the Admitting provider: The patient is a 71-year-old woman who is currently in psychiatric treatment with Paige VIGIL at [facility] in [place]. The patient had a recent hospitalization at [facility] in March of this year following an intentional overdose of Seroquel in a suicide attempt. The patient admits that her mood has been increasingly depressed although denies that there was any single precipitant to it. She had bilateral knee replacements in January and although that has been difficult and financially she was not able to complete inpatient rehabilitation, she denies that that was a significant stressor. Prior to the knee replacement she said that her mood was "stable" but does not say that she was happy. Her mood has been steadily worsening over the last several months. After overdosing on Seroquel in March she was admitted to [facility] for 2 weeks where she indicates they did not change her medications in any way. She did not feel better upon discharge and she decided with her outpatient provider that they would switch from Effexor to Lexapro as by her reports, she has never had a trial of an SSRI. She is currently on 75 mg of Effexor and Lexapro has been titrated to 15 mg daily. She does not feel any better and her anxiety is quite prominent. She is having trouble making decisions, cannot tolerate change. Apparently her outpatient provider has been suggesting she be hospitalized for medication changes for some time and yesterday referred her to the emergency room for evaluation. Today the patient continues to report depressed mood and severe anxiety. She reports poor appetite with a 40 pound weight loss over the last several months. She has "an awful lot of anxiety" that his been going on "for a good while". She does not have the motivation to pursue activities and says when she is at home she spends a lot of time "staring at the kaba". On weekends she will be a "recluse" and remain in her home and sometimes not even shower. 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 Today she denies that she is having acute suicidal ideation. She denies any episodes of elevated mood or increase in goal-directed activities that would meet criteria for bipolar disorder. She does not engage in self-injurious behaviors. She denies symptoms of OCD. She has never experienced auditory or visual hallucinations. Hospital Course (1) Major depressive disorder, recurrent severe without psychotic features 05/18 -Increase Lexapro to 20 mg daily - Discontinue Effexor - Will use when necessary Vistaril for anxiety and sleep - Assist the patient to explore coping strategies such as mindfulness, relaxation and deep breathing - Encourage participation in group and individual counseling - Every 15 minute checks for safety - Coordinate with her current outpatient providers and obtain records from hospitalization at [place] in March 30 - Continue Lexapro 20 mg. daily - Family meeting this afternoon 05/20 --risks/benefits/alternative treatments reviewed re: Abilify as augmentation strategy for patient's severe, persistent, ruminative depression. She ultimately agreed to a trial of 2.5 mg daily to start. Discussion included but was not limited to need for metabolic monitoring and risks of TD. Baseline AIMS=0. Fasting glucose and cholesterol panel in am. 05/21 - Continue current meds - Encourage to make pro/con list for possible housing options. 05/22 - Increase Abilify to 5 mg. daily - Glucose 100, lipids WNLs. 05/23 - Continue escitalopram 20mg and aripiprazole 5mg daily. - Declined increase in trazodone dose, but will add 50mg prn to be given if 150mg ineffective. 05/24 - Continue escitalopram, trazodone, and aripiprazole. 05/25 - Increase aripiprazole 7.5 mg every morning for tomorrow, and continue escitalopram and trazodone. - Refer to partial hospitalization program in [place], and continue to work with daughters regarding options for where she will live at discharge. - She is unable to return to work, so we will complete FMLA and short-term disability paperwork. 05/26 - Increase Trazodone to 200 mg. HS (2) Panic disorder without agoraphobia 03/17 - Medications as above - Assist the patient to explore other healthy coping strategies 05/23 - Encourage to work on coping skills and discharge plans, as says daughter Renea now doesn't want her to come stay with her. (3) Hypothyroidism 05/18 - TSH 0.119, free T4 1 0.68. May need levothyroxine adjusted back to 112 g daily but will await results from March values at [place] 05/20 - TSH 8.65 on 02/04/17 and now suppressed. Family expressed concerns about weight loss and patient notes ongoing tremor despite beta bowen (for hypertension), decrease to 112 mcg synthroid, will require repeat thyroid panel in 6 weeks. (4) Hypertension 05/18 - Continue home medications Monitor BP- (5) Dyslipidemia 05/18 - Continue home dose of Zocor Risk Factors Assessment : Yes /single/: Yes Higher / Fall in social status: No Health problems: Yes Mental Health Diagnoses: Yes Substance use disorders: No Previous attempt: Yes Previous psychiatric stay: Yes Smoker: No Protective Factors Assessment Pentecostalism beliefs: Yes : No Responsible for young children: No Employed: No Stable relationships: Yes Supportive family: Yes Good rapport with provider: Yes Day of Discharge Assessment COURSE OF HOSPITALIZATION: The patient was on our unit for 10 days. She was admitted with worsening depression and suicidality. She had been hospitalized a [facility] in March following an intentional overdose of Klonopin and Seroquel in a suicide attempt. She did not thrive after discharge, continued to be severely depressed and unable to function and was referred by her provider to our facility. During her stay her medications were adjusted to include increasing Lexapro to 20 mg daily, augmenting with Abilify 7.5 mg daily , and increasing her trazodone to 200 mg at bedtime to target her sleep. Her TSH was low and her free T4 was high and so her levothyroxine was adjusted down to 112 g daily. She improved progressively over the course of her hospitalization although consistently reported high anxiety and impaired sleep. She worried to access about where to live and whether or not to return to work during her stay. She changed her mind multiple times ultimately deciding to remain living with her daughter Virginia. She decided to take a leave from work and we are recommending she attend partial hospitalization which she is anxious about, not knowing what to expect. She was cooperative with programming , attending both individual and group therapies. Family meeting was held with her daughter Tanika. Tanika extended and offer for the patient to come live with her in hopes of relieving her financial stress to pay for the apartment and her daily costs of living. The patient was too anxious to consider this, feeling that she would be a burden to Tanika no matter what Tanika said. She ceased to have suicidal thinking toward the end of her hospitalization but was anxious about what to expect moving forward. DAY OF DISCHARGE ASSESSMENT: Today the patient is requesting discharge. She continues to deny suicidal ideation. She is considered to be improved over admission. Today she is casually and appropriately dressed and groomed. Gait and station are within normal limits. Eye contact is good. Affect is anxious. Speech is of normal rate volume and tone. Thoughts are organized, goal- directed, without evidence of thought disorder. Memory is intact per conversation. Intelligence is estimated to be average. Insight and judgment are improved over admission. Laboratory Test 05/17/17 09:58 05/17/17 10:08 05/21/17 07:05 Urine Color YELLOW Urine Appearance CLEAR Urine pH 5.0 Urine Specific [place] 1.015 Urine Protein NEG Urine Glucose (UA) NEG Urine Ketones NEG Urine Occult Blood NEG Urine Nitrite NEG Urine Bilirubin NEG Urine Urobilinogen NEG Urine Leukocyte Esterase SMALL Urine WBC (Auto) 1-5 Urine RBC (Auto) 0-4 Urine Hyaline Casts (Auto) 1-5 Urine Epithelial Cells (Auto) 20-30 Urine Bacteria (Auto) NEG Urine Opiates Screen NEG Urine Methadone, Qualitative NEG Urine Barbiturates NEG Urine Phencyclidine (PCP) Level NEG Ur Amphetamine/Methamphetamine NEG Urine MDE-amphetamine (MDEA) negative Ur Methylenedioxyamphetamine (MDA) negative MDMA (Ecstasy) Screen POS Methylenedioxymethamphetamine (MDMA negative Urine Benzodiazepines Screen NEG Urine Cocaine Metabolite NEG Urine Marijuana (THC) NEG White Blood Count 5.37 Red Blood Count 4.50 Hemoglobin 13.2 Hematocrit 37.9 Mean Corpuscular Volume 84.2 Mean Corpuscular Hemoglobin 29.3 Mean Corpuscular Hemoglobin Concent 34.8 Platelet Count 297 Mean Platelet Volume 8.5 Neutrophils (%) (Auto) 71.1 Lymphocytes (%) (Auto) 17.5 Monocytes (%) (Auto) 8.2 Eosinophils (%) (Auto) 2.4 Basophils (%) (Auto) 0.6 Neutrophils # (Auto) 3.82 Lymphocytes # (Auto) 0.94 Monocytes # (Auto) 0.44 Eosinophils # (Auto) 0.13 Basophils # (Auto) 0.03 RDW Standard Deviation 44.8 RDW Coefficient of Variation 14.5 Immature Granulocyte % (Auto) 0.2 Immature Granulocyte # (Auto) 0.01 Sodium Level 138 Potassium Level 4.1 Chloride Level 104 Carbon Dioxide Level 24 Anion Gap 10.0 Blood Urea Nitrogen 13 Creatinine 0.88 Est Creatinine Clear Calc Drug Dose 58.3 Estimated GFR () 77.2 Estimated GFR (Non- 66.6 BUN/Creatinine Ratio 15.0 Random Glucose 144 Calcium Level 9.2 Total Bilirubin 0.5 Direct Bilirubin 0.2 Aspartate Amino Transferase (AST) 20 Alanine Aminotransferase (ALT) 22 Alkaline Phosphatase 104 Total Protein 7.2 Albumin 3.6 Lipase 242 Thyroid Stimulating Hormone (TSH) 0.119 Free Thyroxine 1.68 Ethyl Alcohol mg/dL < 3.0 Fasting Glucose 100 Triglycerides Level 138 Cholesterol Level 140 HDL Cholesterol 44 LDL Cholesterol, Calculated 68 VLDL Cholesterol, Calculated 28 Cholesterol/HDL Ratio 3.2 Total Time Total Time Spent (min): Greater than 30 minutes Total Time Included: examination of the patient, discharge planning, medication reconciliation, communication with other providers Tobacco Cessation at Discharge Smoking Status: Never Smoker FDA approved Prescription: non-smoker
== END 2017-05-27 14:05 | disposition home or self-care (01) | DRG 885 ==
LOC: C.EDB 09:35 → C.MHU 12:19
PROVIDERS: ADMIT Psychiatry & Neurology Psychiatry; ATTEND Psychiatry & Neurology Psychiatry
DX: F33.2 Major depressive disorder, recurrent severe without psychotic features (principal); F41.0 Panic disorder [episodic paroxysmal anxiety]; Z96.653 Presence of artificial knee joint, bilateral; E03.9 Hypothyroidism, unspecified; I10 Essential (primary) hypertension; E78.5 Hyperlipidemia, unspecified; Z79.82 Long term (current) use of aspirin